=== PATIENT | female | born 1960 | race Caucasian/White ===

== ENCOUNTER 2018-06-19 12:55 | Emergency (ER) | payer OTHER ==
[~2018-06-19] VITALS: Ht 154.9 cm; Wt 48.5 kg
[2018-06-19] MEDS ORDERED: SODIUM CHLORIDE 0.9% 1,000 ML IV ONE (13:50)
[2018-06-19 15:32] LABS: Basophils # (auto) 0.1 uL; Basophils % (auto) 1.9 % (0.0-2.0); Eosinophils # (auto) 0 uL; Eosinophils % (auto) 0.7 % (0.0-7.0); Hemoglobin 9.3 g/dL (12.2-16.2); Monocytes # (auto) 0.3 uL; Neutrophils # (auto) 1.1 uL; White Blood Cell 2.9 10^3/uL (4.4-10.8)
[2018-06-19 15:34] LABS: Hematocrit 26.7 % (36.0-46.0); Lymphocytes # (auto) 1.4 uL; Lymphocytes % (auto) 48.9 % (10.0-50.0); Mean Corpuscular Hemoglobin 43.2 pg (28.0-32.0); Mean Corpuscular Hgb Conc. 34.7 g/dL (32.0-36.0); Mean Corpuscular Volume 124.4 fL (80.0-100.0); Monocytes % (auto) 9.1 % (0.0-12.0); Neutrophils % (auto) 39.4 % (37.0-80.0); Nucleated Red Blood Cells % 0.2 %; Platelet Count (auto) 170 10^3/uL (140-450); Red Blood Cells 2.14 10^6/uL (4.0-5.20); Red Cell Distribution Width 17.3 % (11.8-14.3)
[2018-06-19 15:59] LABS: Albumin 2.7 g/dL (3.4-5.0); BUN/Creatinine Ratio 25.6; Bilirubin, Total 0.3 mg/dL (0.2-1.0); Calcium 7.5 mg/dL (8.5-10.1); Potassium 3.6 mmol/L (3.5-5.1); Total Protein 6.3 g/dL (6.4-8.2)
[2018-06-19] MEDS ORDERED: CYANOCOBALAMIN (B-12) 1000 MCG/1 ML VIAL IM ONE (17:15)
[2018-06-19] MEDS ORDERED: THIAMINE INJ 100 MG, MULTIPLE VITAMIN 10 ML, FOLIC ACID 1 MG, MAGNESIUM SULF SDV 50% 8 ... IV SCH ×5 (18:00)
[2018-06-19 19:29] VITALS: BP 99/63
[2018-06-20] MEDS ORDERED: THIAMINE INJ 100 MG, MULTIPLE VITAMIN 10 ML, FOLIC ACID 1 MG, MAGNESIUM SULF SDV 50% 8 ... IV SCH ×5 (12:00)
== END 2018-06-19 20:29 | disposition home or self-care (01) ==
LOC: ER 12:57
DX: M79.671 Pain in right foot (principal); R60.9 Edema, unspecified; E44.0 Moderate protein-calorie malnutrition; F50.9 Eating disorder, unspecified; D75.89 Other specified diseases of blood and blood-forming organs; R74.8 Abnormal levels of other serum enzymes; F17.210 Nicotine dependence, cigarettes, uncomplicated; J44.9 Chronic obstructive pulmonary disease, unspecified; Z68.20 Body mass index [BMI] 20.0-20.9, adult
CPT/HCPCS: 36415; 71046; 80053; 83735; 83880; 84443; 85025; 93005; 96365; 96372; 99285; J3411; J3420; J3475; J7030

== ENCOUNTER 2023-10-25 03:18 | Inpatient (IN) | payer OTHER ==
[2023-10-25] VITALS (59 sets, daily range): BP systolic 70–128; BP diastolic 35–75; PULSE 66–126; RESP 9–23; TEMP 97.5–99.7; O2SAT 89–100
[~2023-10-25] VITALS: Ht 152.4 cm; Wt 67.9 kg
[2023-10-25 03:43] LABS: Basophils # (auto) 0 10 ^3/uL (0-0.2); Basophils % (auto) 0.3 % (0.0-2.0); Eosinophils # (auto) 0 10 ^3/uL (0-0.8); Eosinophils % (auto) 0.1 % (0.0-7.0); Lymphocytes % (auto) 21.4 % (10.0-50.0); Monocytes # (auto) 0.8 10 ^3/uL (0-1.3)
[2023-10-25 03:44] LABS: Hematocrit 22.3 % (36.0-46.0); Hemoglobin 7.5 g/dL (12.2-16.2); Mean Corpuscular Hemoglobin 38.9 pg (28.0-32.0); Mean Corpuscular Hgb Conc. 33.8 g/dL (32.0-36.0); Mean Corpuscular Volume 115.3 fL (80.0-100.0); Monocytes % (auto) 8.4 % (0.0-12.0); Neutrophils # (auto) 6.6 10 ^3/uL (1.6-8.6); Neutrophils % (auto) 69.8 % (37.0-80.0); Nucleated Red Blood Cells % 0.7 %; Red Blood Cells 1.93 10^6/uL (4.0-5.20); Red Cell Distribution Width 13.4 % (11.8-14.3); White Blood Cell 9.5 10^3/uL (4.4-10.8)
[2023-10-25 04:00] LABS: INR 1.41 (0.9-1.15); Partial Thromboplastin Time 26.6 SEC (24.5-34.5); Prothrombin Time 14.5 sec (9.3-11.8)
[2023-10-25 04:06] LABS: Alanine Aminotransferase 46 U/L (7-40); Alkaline Phosphatase 55 U/L (46-116); Anion Gap 23 (5-15); Aspartate Aminotransferase 99 U/L (13-40); BUN/Creatinine Ratio 46.6 (10.0-20.0); Bilirubin, Total 1.4 mg/dL (0.2-1.0); Blood Urea Nitrogen 34 mg/dL (9-23); Carbon Dioxide 21 mmol/L (20-30); Chloride 90 mmol/L (98-107); Glucose 202 mg/dL (74-106); Potassium 2.8 mmol/L (3.5-5.1); Sodium 134 mmol/L (136-145); Total Protein 5.8 g/dL (5.7-8.2)
[2023-10-25] MEDS ORDERED: PANTOPRAZOLE 40mg/50ML NS AE 50 ML IV ONE (04:30)
[2023-10-25] MEDS ORDERED: ONDANSETRON HCL 4 MG/2 ML VIAL IV ONE (04:30)
[2023-10-25] MEDS ORDERED: fentaNYL CITRATE 100 MCG/2 ML VL IV ONE (04:30)
[2023-10-25] MEDS ORDERED: POTASSIUM CHLORIDE 40 MEQ, LIDOCAINE 1% (LOCAL ANESTH.) 4 ML in SODIUM CHL 0.9% 250 ML IV ONE (04:30)
[2023-10-25] MEDS ORDERED: LACTATED RINGER'S 2,000 ML IV ONE (04:30)
[2023-10-25] MEDS ORDERED: PANTOPRAZOLE 80 MG in SODIUM CHL 0.9% 100 ML IV ONE (04:30)
[2023-10-25 04:36] LABS: Hypochromia Slight; Macrocytosis Slight; Platelet Estimate Adequate
[2023-10-25] MEDS ORDERED: IOHEXOL 300 MG/ML 100ML BOTTLE IJ ONE (04:38)
[2023-10-25] MEDS ORDERED: PANTOPRAZOLE 40 MG/10 ML VIAL INJ IV ONE (05:01)
[2023-10-25] MEDS ORDERED: METOCLOPRAMIDE HCL 5MG/ml INJ 2ml VIAL IV ONE (06:00)
[2023-10-25] MEDS ORDERED: diphenhdrAMINE HCL 50 MG/1 ML VL IV ONE (06:00)
[2023-10-25 06:25] LABS: Urine Epithelial Cast None Seen /hpf (<5)
[2023-10-25] MEDS: POTASSIUM CHL 20MEQ/100ML 100 ML IV SCH ×2 (06:49→08:51)
[2023-10-25 07:02] LABS: Urine Bacteria NONE SEEN /hpf (None Seen); Urine Blood 3+ /uL (Negative); Urine Budding Yeast MODERATE /hpf (None Seen); Urine Clarity HAZY (Clear); Urine Color PINK (Yellow); Urine Mucus FEW (None Seen); Urine Protein, UAD 1+ (Negative); Urine Specific Gravity 1.019 (1.001-1.035); Urine WBC 246 /hpf (0 - 5); Urine WBC Clumps PRESENT /hpf (None Seen); Urine pH 6.5 (5.0-8.0)
[2023-10-25] MEDS ORDERED: LACTATED RINGER'S 1,000 ML IV ONE (07:30)
[2023-10-25] MEDS ORDERED: CIPROFLOXACIN 400MG/200ML 200 ML IV ONE (07:30)
[2023-10-25] MEDS ORDERED: metroNIDAZOLE 500MG/100ML 100 ML IV ONE (07:30)
[2023-10-25 08:46] LABS: Blood Alcohol < 3.0 mg/dL (<10); Lipase 37 U/L (12-53)
[2023-10-25] MEDS ORDERED: DEXTROSE (50%) 50ML SYRG IV PRN (10:15)
[2023-10-25] MEDS ORDERED: DOCUSATE SOD 100 MG CAP PO PRN (10:15)
[2023-10-25] MEDS ORDERED: ONDANSETRON HCL 4 MG/2 ML VIAL IV PRN (10:15)
[2023-10-25] MEDS ORDERED: LORazepam 2MG/ML-1ML VIAL IV PRN (10:15)
[2023-10-25] MEDS ORDERED: OCTREOTIDE ACETATE 100 MCG in SODIUM CHL 0.9% 50 ML IV ONE (10:15)
[2023-10-25] MEDS: PANTOPRAZOLE 40mg/50ML NS AE 50 ML IV SCH ×3 (10:38→19:38)
[2023-10-25 11:07] LABS: Magnesium 1.6 mg/dL (1.6-2.6)
[2023-10-25 11:09] LABS: Phosphorus 4.2 mg/dL (2.4-5.1)
[2023-10-25] MEDS: SODIUM CHLORIDE 0.9% 1,000 ML IV SCH ×2 (11:20→18:20)
[2023-10-25] MEDS: OCTREOTIDE ACETATE 500 MCG in SODIUM CHL 0.9% 99 ML IV SCH ×2 (11:51→20:15)
[2023-10-25] MEDS: InsuLIN REG 1unit/0.01ml Soln (100units/ml) SC SCH ×2 (12:00→18:00)
[2023-10-25] MEDS: ACCU-CHEK COMFORT CURVE STRIP VI SCH ×2 (12:09→18:00)
[2023-10-25] MEDS ORDERED: SODIUM CHLORIDE 0.9% 1,000 ML IV ONE (12:15)
[2023-10-25] MEDS: PIPERACILLIN-TAZOB 3.375GM 100 ML IV SCH ×2 (12:25→18:00)
[2023-10-25 13:13] LABS: Hematocrit 21.1 % (36.0-46.0)
[2023-10-25] MEDS: NOREPINEPHRINE 8 MG/250ML KIT 250 ML IV SCH (16:00)
[2023-10-25] MEDS: MORPHINE SULFATE INJ 2 MG/ml SYRG IV PRN (19:38)
[2023-10-25 20:01] LABS: Hematocrit 20.6 % (36.0-46.0)
[2023-10-25 20:04] LABS: Hemoglobin 6.8 g/dL (12.2-16.2)
[2023-10-25 20:17] LABS: Potassium 3.7 mmol/L (3.5-5.1)
[2023-10-25 20:24] LABS: Magnesium 1.2 mg/dL (1.6-2.6)
[2023-10-26] VITALS (103 sets, daily range): BP systolic 66–127; BP diastolic 16–81; PULSE 57–112; RESP 9–24; TEMP 97.5–98.5; O2SAT 11–100
[2023-10-26] MEDS: ACCU-CHEK COMFORT CURVE STRIP VI SCH ×2 (00:04→05:39)
[2023-10-26] MEDS: PIPERACILLIN-TAZOB 3.375GM 100 ML IV SCH ×4 (00:04→19:47)
[2023-10-26] MEDS: PANTOPRAZOLE 40mg/50ML NS AE 50 ML IV SCH ×5 (00:52→20:27)
[2023-10-26] MEDS: SODIUM CHLORIDE 0.9% 1,000 ML IV SCH ×3 (02:08→18:51)
[2023-10-26 04:10] LABS: Basophils # (auto) 0 10 ^3/uL (0-0.2); Basophils % (auto) 0.4 % (0.0-2.0); Eosinophils # (auto) 0.1 10 ^3/uL (0-0.8); Eosinophils % (auto) 1.4 % (0.0-7.0); Hematocrit 31.8 % (36.0-46.0); Hemoglobin 10.7 g/dL (12.2-16.2); Lymphocytes # (auto) 1.9 10 ^3/uL (0.4-5.4); Lymphocytes % (auto) 22.1 % (10.0-50.0); Mean Corpuscular Hemoglobin 30.9 pg (28.0-32.0); Mean Corpuscular Hgb Conc. 33.8 g/dL (32.0-36.0); Mean Corpuscular Volume 91.5 fL (80.0-100.0); Monocytes # (auto) 0.8 10 ^3/uL (0-1.3); Monocytes % (auto) 8.8 % (0.0-12.0); Neutrophils # (auto) 5.7 10 ^3/uL (1.6-8.6); Neutrophils % (auto) 67.3 % (37.0-80.0); Nucleated Red Blood Cells % 0.3 %; Red Blood Cells 3.48 10^6/uL (4.0-5.20); Red Cell Distribution Width 18.3 % (11.8-14.3); White Blood Cell 8.5 10^3/uL (4.4-10.8)
[2023-10-26 04:26] LABS: Alanine Aminotransferase 28 U/L (7-40); Albumin 2.1 g/dL (3.2-4.8); Alkaline Phosphatase 34 U/L (46-116); Anion Gap 6 (5-15); Aspartate Aminotransferase 73 U/L (13-40); BUN/Creatinine Ratio 46.9 (10.0-20.0); Calcium 6.1 mg/dL (8.7-10.4); Carbon Dioxide 25 mmol/L (20-30); Potassium 3.1 mmol/L (3.5-5.1); Sodium 139 mmol/L (136-145)
[2023-10-26 04:27] LABS: Bilirubin, Total 1.2 mg/dL (0.2-1.0)
[2023-10-26 04:28] LABS: Blood Urea Nitrogen 23 mg/dL (9-23); Chloride 108 mmol/L (98-107); Glucose 136 mg/dL (74-106)
[2023-10-26 05:13] LABS: Platelet Estimate Decreased
[2023-10-26] MEDS ORDERED: CALCIUM GLUC 1,000mg/50ml-NS 50 ML IV ONE (05:30)
[2023-10-26] MEDS: InsuLIN REG 1unit/0.01ml Soln (100units/ml) SC SCH ×2 (05:48)
[2023-10-26] MEDS: POTASSIUM CHL 20MEQ/100ML 100 ML IV SCH ×2 (05:59→07:56)
[2023-10-26] MEDS: OCTREOTIDE ACETATE 500 MCG in SODIUM CHL 0.9% 99 ML IV SCH ×3 (06:15→20:28)
[2023-10-26] MEDS: MAGNESIUM SULFATE 1GM/100ML 100 ML IV SCH ×2 (06:25→07:57)
[2023-10-26] MEDS: FOLIC ACID 1 MG, MAGNESIUM SULF SDV 50% 8 MEQ, MULTIPLE VITAMIN 10 ML, THIAMINE INJ 100... INJ SCH ×10 (07:50→17:26)
[2023-10-26 10:48] LABS: Hematocrit 28.6 % (36.0-46.0); Hemoglobin 9.3 g/dL (12.2-16.2)
[2023-10-26 11:23] LABS: Amphetamine Screen, Urine Neg (NEGATIVE); Barbiturate Scree,Urine Neg (NEGATIVE); Benzodiazephine Screen, Urine Neg (NEGATIVE); Cannabinoid Screen, Urine Neg (NEGATIVE); Cocaine Screen, Urine Neg (NEGATIVE); Opiate Scree,Urine Pos (NEGATIVE); Phencyclidine Screen, Urine Neg (NEGATIVE)
[2023-10-26 12:47] LABS: Chloride 110 mmol/L (98-107); Potassium 3.9 mmol/L (3.5-5.1); Sodium 138 mmol/L (136-145)
[2023-10-26 12:48] LABS: Anion Gap 7 (5-15); Calcium 6.5 mg/dL (8.7-10.4); Carbon Dioxide 21 mmol/L (20-30)
[2023-10-26 12:53] LABS: Blood Urea Nitrogen 13 mg/dL (9-23); Glucose 117 mg/dL (74-106)
[2023-10-26] MEDS: NOREPINEPHRINE 8 MG/250ML KIT 250 ML IV SCH ×2 (14:19→22:36)
[2023-10-26 14:38] LABS: Basophils # (auto) 0 10 ^3/uL (0-0.2); Hemoglobin 8.4 g/dL (12.2-16.2); Monocytes # (auto) 0.4 10 ^3/uL (0-1.3); Neutrophils # (auto) 5.7 10 ^3/uL (1.6-8.6); Nucleated Red Blood Cells % 0.3 %; White Blood Cell 7.5 10^3/uL (4.4-10.8)
[2023-10-26 14:39] LABS: Basophils % (auto) 0.3 % (0.0-2.0); Eosinophils # (auto) 0.1 10 ^3/uL (0-0.8); Eosinophils % (auto) 1.8 % (0.0-7.0); Hematocrit 24.5 % (36.0-46.0); Lymphocytes # (auto) 1.3 10 ^3/uL (0.4-5.4); Mean Corpuscular Hemoglobin 31.9 pg (28.0-32.0); Mean Corpuscular Hgb Conc. 34.4 g/dL (32.0-36.0); Mean Corpuscular Volume 92.9 fL (80.0-100.0); Monocytes % (auto) 5.4 % (0.0-12.0); Neutrophils % (auto) 75.5 % (37.0-80.0); Red Blood Cells 2.64 10^6/uL (4.0-5.20); Red Cell Distribution Width 18.7 % (11.8-14.3)
[2023-10-26] MEDS: MORPHINE SULFATE INJ 2 MG/ml SYRG IV PRN ×2 (15:20→19:48)
[2023-10-26 21:22] LABS: Hematocrit 19.7 % (36.0-46.0)
[2023-10-26 21:46] LABS: Hemoglobin 6.6 g/dL (12.2-16.2)
[2023-10-27] VITALS (103 sets, daily range): BP systolic 77–117; BP diastolic 41–76; PULSE 63–107; RESP 9–23; TEMP 97.8–99; O2SAT 81–100
[2023-10-27] MEDS: PANTOPRAZOLE 40mg/50ML NS AE 50 ML IV SCH ×4 (02:06→18:14)
[2023-10-27] MEDS: SODIUM CHLORIDE 0.9% 1,000 ML IV SCH ×3 (03:19→21:03)
[2023-10-27] MEDS: PIPERACILLIN-TAZOB 3.375GM 100 ML IV SCH ×3 (03:31→20:33)
[2023-10-27 04:14] LABS: Basophils # (auto) 0 10 ^3/uL (0-0.2); Eosinophils # (auto) 0.2 10 ^3/uL (0-0.8); Hematocrit 24.7 % (36.0-46.0); Hemoglobin 8.2 g/dL (12.2-16.2); Mean Corpuscular Hemoglobin 31.1 pg (28.0-32.0); Mean Corpuscular Hgb Conc. 33.2 g/dL (32.0-36.0); Monocytes # (auto) 0.4 10 ^3/uL (0-1.3); Neutrophils # (auto) 4.7 10 ^3/uL (1.6-8.6); Nucleated Red Blood Cells % 0.3 %; Red Blood Cells 2.64 10^6/uL (4.0-5.20)
[2023-10-27 04:18] LABS: Basophils % (auto) 0.5 % (0.0-2.0); Eosinophils % (auto) 3.2 % (0.0-7.0); Lymphocytes # (auto) 1.4 10 ^3/uL (0.4-5.4); Lymphocytes % (auto) 20.3 % (10.0-50.0); Mean Corpuscular Volume 93.5 fL (80.0-100.0); Monocytes % (auto) 6.5 % (0.0-12.0); Neutrophils % (auto) 69.5 % (37.0-80.0); Red Cell Distribution Width 17.5 % (11.8-14.3); White Blood Cell 6.8 10^3/uL (4.4-10.8)
[2023-10-27 04:29] LABS: Alanine Aminotransferase 49 U/L (7-40); Albumin 1.9 g/dL (3.2-4.8); Alkaline Phosphatase 31 U/L (46-116); Anion Gap 7 (5-15); Aspartate Aminotransferase 146 U/L (13-40); BUN/Creatinine Ratio 47.1 (10.0-20.0); Blood Urea Nitrogen 16 mg/dL (9-23); Calcium 6.2 mg/dL (8.7-10.4); Carbon Dioxide 20 mmol/L (20-30); Chloride 112 mmol/L (98-107); Glucose 110 mg/dL (74-106); Phosphorus 1.7 mg/dL (2.4-5.1); Potassium 3.7 mmol/L (3.5-5.1); Sodium 139 mmol/L (136-145); Total Protein 3.7 g/dL (5.7-8.2)
[2023-10-27] MEDS: OCTREOTIDE ACETATE 500 MCG in SODIUM CHL 0.9% 99 ML IV SCH (07:10)
[2023-10-27] MEDS: MORPHINE SULFATE INJ 2 MG/ml SYRG IV PRN ×2 (09:42→17:06)
[2023-10-27] MEDS ORDERED: NALOXONE HCL 0.4 MG/ML VIAL ONE (12:37)
[2023-10-27] MEDS ORDERED: SODIUM CHLORIDE LOCK 10 ML ONE (12:37)
[2023-10-27] MEDS ORDERED: FLUMAZENIL 0.1 MG/ML INJ 10ML MDV IV ONE (12:37)
[2023-10-27] MEDS ORDERED: EPINEPHrine HCL 1 MG/10 ML SYRG ONE (12:37)
[2023-10-27] MEDS ORDERED: MIDAZOLAM HCL 5 MG/ML-1ML VIAL ONE (12:38)
[2023-10-27] MEDS ORDERED: LIDOCAINE VISCOUS 2% 15ML UD ONE (12:38)
[2023-10-27] MEDS ORDERED: fentaNYL CITRATE 100 MCG/2 ML VL ONE (12:39)
[2023-10-27] MEDS ORDERED: LIDOCAINE VISCOUS 2% 15ML UD MT ONE (13:04)
[2023-10-27] MEDS: diphenhdrAMINE HCL 50 MG/1 ML VL ONE ×2 (13:06→13:07)
[2023-10-27] MEDS ORDERED: GOLYTELY 4L KIT PO ONE (14:15)
[2023-10-27] MEDS: NOREPINEPHRINE 8 MG/250ML KIT 250 ML IV SCH (18:16)
[2023-10-27] MEDS: FOLIC ACID 1 MG, MAGNESIUM SULF SDV 50% 8 MEQ, MULTIPLE VITAMIN 10 ML, THIAMINE INJ 100... INJ SCH ×5 (18:45)
[2023-10-27] MEDS ORDERED: MAGNESIUM CITRATE SOLUTION 300 ML BTL PO ONE (18:45)
[2023-10-27 20:56] LABS: Hematocrit 19.2 % (36.0-46.0)
[2023-10-27 21:03] LABS: Hemoglobin 6.5 g/dL (12.2-16.2)
[2023-10-28] VITALS (103 sets, daily range): BP systolic 80–179; BP diastolic 28–156; PULSE 65–127; RESP 11–28; TEMP 97.7–99.2; O2SAT 78–100
[2023-10-28] MEDS: PANTOPRAZOLE 40mg/50ML NS AE 50 ML IV SCH ×3 (01:09→05:48)
[2023-10-28 04:09] LABS: Basophils # (auto) 0 10 ^3/uL (0-0.2); Eosinophils # (auto) 0.1 10 ^3/uL (0-0.8); Hemoglobin 7.9 g/dL (12.2-16.2); Lymphocytes # (auto) 1.1 10 ^3/uL (0.4-5.4); Monocytes # (auto) 0.5 10 ^3/uL (0-1.3); Neutrophils # (auto) 4.8 10 ^3/uL (1.6-8.6); White Blood Cell 6.5 10^3/uL (4.4-10.8)
[2023-10-28] MEDS: PIPERACILLIN-TAZOB 3.375GM 100 ML IV SCH ×3 (04:09→20:06)
[2023-10-28 04:13] LABS: Basophils % (auto) 0.3 % (0.0-2.0); Eosinophils % (auto) 1.8 % (0.0-7.0); Hematocrit 23.8 % (36.0-46.0); Lymphocytes % (auto) 17.3 % (10.0-50.0); Mean Corpuscular Hemoglobin 31.6 pg (28.0-32.0); Mean Corpuscular Hgb Conc. 33.2 g/dL (32.0-36.0); Mean Corpuscular Volume 95.4 fL (80.0-100.0); Monocytes % (auto) 7.3 % (0.0-12.0); Neutrophils % (auto) 73.3 % (37.0-80.0); Nucleated Red Blood Cells % 0.3 %; Red Blood Cells 2.49 10^6/uL (4.0-5.20); Red Cell Distribution Width 16.8 % (11.8-14.3)
[2023-10-28 04:20] LABS: INR 1.16 (0.9-1.15); Partial Thromboplastin Time 31.3 SEC (24.5-34.5); Prothrombin Time 12.1 sec (9.3-11.8)
[2023-10-28 04:24] LABS: Alanine Aminotransferase 41 U/L (7-40); Albumin 1.9 g/dL (3.2-4.8); Alkaline Phosphatase 34 U/L (46-116); Anion Gap 5 (5-15); Aspartate Aminotransferase 101 U/L (13-40); Blood Urea Nitrogen 14 mg/dL (9-23); Carbon Dioxide 20 mmol/L (20-30); Chloride 113 mmol/L (98-107); Glucose 102 mg/dL (74-106); Potassium 3.4 mmol/L (3.5-5.1); Sodium 138 mmol/L (136-145)
[2023-10-28 04:25] LABS: Bilirubin, Total 1.1 mg/dL (0.2-1.0); Total Protein 3.6 g/dL (5.7-8.2)
[2023-10-28 04:55] LABS: Calcium 5.7 mg/dL (8.7-10.4)
[2023-10-28] MEDS: SODIUM CHLORIDE 0.9% 1,000 ML IV SCH ×2 (04:56→13:15)
[2023-10-28] MEDS: CALCIUM GLUC 1,000mg/50ml-NS 50 ML IV SCH ×2 (05:36→06:16)
[2023-10-28] MEDS ORDERED: GOLYTELY 4L KIT PO ONE (06:00)
[2023-10-28] MEDS ORDERED: MAGNESIUM CITRATE SOLUTION 300 ML BTL PO ONE (06:00)
[2023-10-28] MEDS: MORPHINE SULFATE INJ 2 MG/ml SYRG IV PRN ×3 (07:51→20:05)
[2023-10-28] MEDS ORDERED: SODIUM CHLORIDE LOCK 10 ML ONE (08:54)
[2023-10-28] MEDS ORDERED: POTASSIUM EFFERVESENT TAB 25 MEQ PO ONE (09:00)
[2023-10-28] MEDS: PANTOPRAZOLE 40 MG/10 ML VIAL INJ IV SCH ×2 (10:00→21:47)
[2023-10-28] MEDS ORDERED: EPINEPHrine HCL 1 MG/10 ML SYRG ONE (10:36)
[2023-10-28] MEDS ORDERED: SIMETHICONE 40 MG/0.6 ML ORAL DROP ONE (11:50)
[2023-10-28] MEDS: fentaNYL CITRATE 100 MCG/2 ML VL ONE ×2 (12:16→12:27)
[2023-10-28] MEDS: diphenhdrAMINE HCL 50 MG/1 ML VL ONE ×2 (12:16→12:20)
[2023-10-28] MEDS: MIDAZOLAM HCL 5 MG/ML-1ML VIAL ONE ×2 (12:16→12:27)
[2023-10-28] MEDS ORDERED: FUROSEMIDE 20 MG/2 ML VIAL IV ONE ×2 (12:45→22:45)
[2023-10-28] MEDS ORDERED: POTASSIUM CHL 20MEQ/100ML 100 ML IV ONE (13:45)
[2023-10-28 13:48] LABS: Hematocrit 21.1 % (36.0-46.0)
[2023-10-28] MEDS ORDERED: LIDOCAINE 1% (LOCAL ANESTH.) PF 5ml SDV ID ONE (16:15)
[2023-10-28] MEDS: FOLIC ACID 1 MG, MAGNESIUM SULF SDV 50% 8 MEQ, MULTIPLE VITAMIN 10 ML, THIAMINE INJ 100... INJ SCH ×5 (18:00)
[2023-10-28] MEDS: CALCIUM W/VIT D (600MG/400IU) TAB PO SCH (18:34)
[2023-10-28] MEDS: IPRATROPIUM BROM 0.5 MG/2.5ML INH SOL NEB PRN (19:44)
[2023-10-28] MEDS: LEVALBUTEROL HCL 1.25 MG/3 ML NEB NEB PRN (19:45)
[2023-10-28] MEDS: NOREPINEPHRINE 8 MG/250ML KIT 250 ML IV SCH (20:07)
[2023-10-28 20:51] LABS: Hematocrit 26.4 % (36.0-46.0); Hemoglobin 8.5 g/dL (12.2-16.2)
[2023-10-28] MEDS: SODIUM CHLOR 0.9% PF (SALINE LOCK) 10ML VIAL/SYR IV SCH (21:48)
[2023-10-29] VITALS (76 sets, daily range): BP systolic 61–144; BP diastolic 44–97; PULSE 76–121; RESP 11–29; TEMP 98–99; O2SAT 86–100
[2023-10-29] MEDS: MORPHINE SULFATE INJ 2 MG/ml SYRG IV PRN ×4 (00:10→20:03)
[2023-10-29 04:06] LABS: Basophils # (auto) 0 10 ^3/uL (0-0.2); Basophils % (auto) 0.2 % (0.0-2.0); Eosinophils # (auto) 0.1 10 ^3/uL (0-0.8); Eosinophils % (auto) 0.7 % (0.0-7.0); Hematocrit 23.9 % (36.0-46.0); Hemoglobin 8.1 g/dL (12.2-16.2); Lymphocytes # (auto) 1.4 10 ^3/uL (0.4-5.4); Lymphocytes % (auto) 13.4 % (10.0-50.0); Mean Corpuscular Hemoglobin 31.1 pg (28.0-32.0); Mean Corpuscular Hgb Conc. 33.9 g/dL (32.0-36.0); Mean Corpuscular Volume 91.6 fL (80.0-100.0); Monocytes # (auto) 1.3 10 ^3/uL (0-1.3); Monocytes % (auto) 12.1 % (0.0-12.0); Neutrophils # (auto) 7.8 10 ^3/uL (1.6-8.6); Neutrophils % (auto) 73.6 % (37.0-80.0); Nucleated Red Blood Cells % 0.6 %; Red Cell Distribution Width 15.6 % (11.8-14.3); White Blood Cell 10.6 10^3/uL (4.4-10.8)
[2023-10-29 04:13] LABS: Alanine Aminotransferase 38 U/L (7-40); Alkaline Phosphatase 38 U/L (46-116); Anion Gap 6 (5-15); Aspartate Aminotransferase 80 U/L (13-40); Blood Urea Nitrogen 14 mg/dL (9-23); Calcium 6.3 mg/dL (8.7-10.4); Carbon Dioxide 22 mmol/L (20-30); Chloride 109 mmol/L (98-107); Glucose 136 mg/dL (74-106); Potassium 3.3 mmol/L (3.5-5.1); Sodium 137 mmol/L (136-145)
[2023-10-29 04:14] LABS: Bilirubin, Total 0.9 mg/dL (0.2-1.0); Total Protein 3.8 g/dL (5.7-8.2)
[2023-10-29] MEDS: PIPERACILLIN-TAZOB 3.375GM 100 ML IV SCH ×3 (04:41→20:04)
[2023-10-29] MEDS ORDERED: POTASSIUM CHL 20MEQ/100ML 100 ML IV ONE (06:00)
[2023-10-29] MEDS: IPRATROPIUM BROM 0.5 MG/2.5ML INH SOL NEB PRN ×2 (06:08→20:06)
[2023-10-29] MEDS: LEVALBUTEROL HCL 1.25 MG/3 ML NEB NEB PRN ×2 (06:09→20:07)
[2023-10-29] MEDS ORDERED: POTASSIUM EFFERVESENT TAB 25 MEQ PO ONE (08:30)
[2023-10-29 09:33] LABS: Hepatitis B Surface Antigen Negative (Negative)
[2023-10-29 09:53] LABS: Hepatitis A Ab IgM Negative
[2023-10-29 09:54] LABS: Hepatitis B Core IgM Negative
[2023-10-29] MEDS: CALCIUM W/VIT D (600MG/400IU) TAB PO SCH (09:55)
[2023-10-29] MEDS: PANTOPRAZOLE 40 MG/10 ML VIAL INJ IV SCH ×2 (09:55→21:17)
[2023-10-29] MEDS: SODIUM CHLOR 0.9% PF (SALINE LOCK) 10ML VIAL/SYR IV SCH ×2 (09:55→21:17)
[2023-10-29] MEDS: FUROSEMIDE 20 MG/2 ML VIAL IV SCH (09:55)
[2023-10-29 10:12] LABS: Hepatitis C Antibody Negative (Negative)
[2023-10-29] MEDS: FOLIC ACID 1 MG, MAGNESIUM SULF SDV 50% 8 MEQ, MULTIPLE VITAMIN 10 ML, THIAMINE INJ 100... INJ SCH ×5 (19:12)
[2023-10-29 19:21] LABS: Hematocrit 21.4 % (36.0-46.0); Hemoglobin 7.3 g/dL (12.2-16.2)
[2023-10-30] VITALS (102 sets, daily range): BP systolic 72–180; BP diastolic 43–100; PULSE 71–118; RESP 11–30; TEMP 98.2–99.4; O2SAT 82–100
[2023-10-30 03:58] LABS: Basophils # (auto) 0 10 ^3/uL (0-0.2); Eosinophils # (auto) 0.1 10 ^3/uL (0-0.8); Hematocrit 19.1 % (36.0-46.0); Lymphocytes # (auto) 1.2 10 ^3/uL (0.4-5.4); Lymphocytes % (auto) 13.3 % (10.0-50.0)
[2023-10-30 04:00] LABS: Basophils % (auto) 0.3 % (0.0-2.0); Eosinophils % (auto) 1.5 % (0.0-7.0); Mean Corpuscular Hemoglobin 31.2 pg (28.0-32.0); Mean Corpuscular Hgb Conc. 33.1 g/dL (32.0-36.0); Mean Corpuscular Volume 94.1 fL (80.0-100.0); Monocytes % (auto) 10.9 % (0.0-12.0); Neutrophils # (auto) 6.8 10 ^3/uL (1.6-8.6); Nucleated Red Blood Cells % 0.9 %; Red Blood Cells 2.03 10^6/uL (4.0-5.20); Red Cell Distribution Width 16.2 % (11.8-14.3); White Blood Cell 9.2 10^3/uL (4.4-10.8)
[2023-10-30 04:10] LABS: Alanine Aminotransferase 30 U/L (7-40); Albumin 1.8 g/dL (3.2-4.8); Alkaline Phosphatase 42 U/L (46-116); Anion Gap 2 (5-15); Aspartate Aminotransferase 62 U/L (13-40); Blood Urea Nitrogen 12 mg/dL (9-23); Calcium 6.2 mg/dL (8.7-10.4); Carbon Dioxide 25 mmol/L (20-30); Chloride 110 mmol/L (98-107); Glucose 129 mg/dL (74-106); Magnesium 1.8 mg/dL (1.6-2.6); Potassium 3.8 mmol/L (3.5-5.1); Sodium 137 mmol/L (136-145)
[2023-10-30 04:11] LABS: Bilirubin, Total 0.8 mg/dL (0.2-1.0); Total Protein 3.6 g/dL (5.7-8.2)
[2023-10-30 04:17] LABS: Hemoglobin 6.3 g/dL (12.2-16.2)
[2023-10-30] MEDS: PIPERACILLIN-TAZOB 3.375GM 100 ML IV SCH ×3 (04:53→20:09)
[2023-10-30] MEDS: MORPHINE SULFATE INJ 2 MG/ml SYRG IV PRN ×4 (04:53→20:47)
[2023-10-30] MEDS: IPRATROPIUM BROM 0.5 MG/2.5ML INH SOL NEB PRN ×2 (06:15→20:20)
[2023-10-30] MEDS: LEVALBUTEROL HCL 1.25 MG/3 ML NEB NEB PRN ×2 (06:16→20:20)
[2023-10-30] MEDS: FUROSEMIDE 20 MG/2 ML VIAL IV SCH (10:15)
[2023-10-30] MEDS: CALCIUM W/VIT D (600MG/400IU) TAB PO SCH (10:15)
[2023-10-30] MEDS: SODIUM CHLOR 0.9% PF (SALINE LOCK) 10ML VIAL/SYR IV SCH ×2 (10:15→21:52)
[2023-10-30] MEDS: PANTOPRAZOLE 40 MG/10 ML VIAL INJ IV SCH ×2 (10:18→21:51)
[2023-10-30] MEDS: SODIUM CHLORIDE 0.9% 1,000 ML IV SCH (10:18)
[2023-10-30] MEDS: NOREPINEPHRINE 8 MG/250ML KIT 250 ML IV SCH (15:15)
[2023-10-30] MEDS: FOLIC ACID 1 MG, MAGNESIUM SULF SDV 50% 8 MEQ, MULTIPLE VITAMIN 10 ML, THIAMINE INJ 100... INJ SCH ×5 (18:24)
[2023-10-31] VITALS (97 sets, daily range): BP systolic 81–124; BP diastolic 47–88; PULSE 80–123; RESP 12–30; TEMP 98.1–99.7; O2SAT 78–100
[2023-10-31] MEDS: MORPHINE SULFATE INJ 2 MG/ml SYRG IV PRN ×4 (02:46→21:19)
[2023-10-31 03:57] LABS: Hematocrit 23.8 % (36.0-46.0); Hemoglobin 8.1 g/dL (12.2-16.2)
[2023-10-31 04:09] LABS: INR 1.14 (0.9-1.15); Partial Thromboplastin Time 32.4 SEC (24.5-34.5); Prothrombin Time 11.9 sec (9.3-11.8)
[2023-10-31] MEDS: PIPERACILLIN-TAZOB 3.375GM 100 ML IV SCH ×3 (04:23→20:14)
[2023-10-31 04:38] LABS: Alanine Aminotransferase 32 U/L (7-40); Albumin 2.3 g/dL (3.2-4.8); Alkaline Phosphatase 58 U/L (46-116); Anion Gap 2 (5-15); Aspartate Aminotransferase 63 U/L (13-40); BUN/Creatinine Ratio 39.3 (10.0-20.0); Blood Urea Nitrogen 11 mg/dL (9-23); Calcium 6.8 mg/dL (8.7-10.4); Carbon Dioxide 26 mmol/L (20-30); Chloride 108 mmol/L (98-107); Glucose 117 mg/dL (74-106); Potassium 3.3 mmol/L (3.5-5.1); Sodium 136 mmol/L (136-145)
[2023-10-31 04:39] LABS: Bilirubin, Total 1.2 mg/dL (0.2-1.0); Total Protein 4.3 g/dL (5.7-8.2)
[2023-10-31] MEDS ORDERED: FUROSEMIDE 20 MG/2 ML VIAL IV ONE (09:45)
[2023-10-31] MEDS: POTASSIUM CHL 20MEQ/100ML 100 ML IV SCH ×2 (10:56→13:18)
[2023-10-31] MEDS: PANTOPRAZOLE 40 MG/10 ML VIAL INJ IV SCH (10:57)
[2023-10-31] MEDS: FUROSEMIDE 40 MG/4 ML VIAL IV SCH (10:57)
[2023-10-31] MEDS: SODIUM CHLOR 0.9% PF (SALINE LOCK) 10ML VIAL/SYR IV SCH ×2 (10:57→21:20)
[2023-10-31] MEDS: CALCIUM W/VIT D (600MG/400IU) TAB PO SCH (10:58)
[2023-10-31] MEDS: NOREPINEPHRINE 8 MG/250ML KIT 250 ML IV SCH (15:15)
[2023-10-31] MEDS: FOLIC ACID 1 MG, MAGNESIUM SULF SDV 50% 8 MEQ, MULTIPLE VITAMIN 10 ML, THIAMINE INJ 100... INJ SCH ×5 (17:46)
[2023-10-31 22:43] LABS: Hemoglobin 7.1 g/dL (12.2-16.2)
[2023-10-31 22:45] LABS: Hematocrit 21.2 % (36.0-46.0)
[2023-11-01] VITALS (105 sets, daily range): BP systolic 79–114; BP diastolic 48–74; PULSE 74–113; RESP 11–28; TEMP 98.1–98.6; O2SAT 89–100
[2023-11-01 03:48] LABS: Basophils # (auto) 0 10 ^3/uL (0-0.2); Basophils % (auto) 0.4 % (0.0-2.0); Eosinophils # (auto) 0.1 10 ^3/uL (0-0.8); Eosinophils % (auto) 1.4 % (0.0-7.0); Hematocrit 21.3 % (36.0-46.0); Hemoglobin 7.1 g/dL (12.2-16.2); Lymphocytes % (auto) 13.1 % (10.0-50.0); Mean Corpuscular Hemoglobin 31.1 pg (28.0-32.0); Mean Corpuscular Hgb Conc. 33.6 g/dL (32.0-36.0); Mean Corpuscular Volume 92.7 fL (80.0-100.0); Monocytes # (auto) 0.8 10 ^3/uL (0-1.3); Monocytes % (auto) 10.5 % (0.0-12.0); Neutrophils # (auto) 5.9 10 ^3/uL (1.6-8.6); Neutrophils % (auto) 74.6 % (37.0-80.0); Nucleated Red Blood Cells % 0.3 %; Red Cell Distribution Width 16.5 % (11.8-14.3)
[2023-11-01 04:02] LABS: Anion Gap 7 (5-15); Carbon Dioxide 23 mmol/L (20-30); Chloride 108 mmol/L (98-107); Potassium 3.3 mmol/L (3.5-5.1); Sodium 138 mmol/L (136-145)
[2023-11-01 04:03] LABS: Calcium 6.6 mg/dL (8.7-10.4)
[2023-11-01 04:08] LABS: BUN/Creatinine Ratio 36.7 (10.0-20.0); Blood Urea Nitrogen 11 mg/dL (9-23); Glucose 120 mg/dL (74-106)
[2023-11-01] MEDS: PIPERACILLIN-TAZOB 3.375GM 100 ML IV SCH ×3 (04:15→19:56)
[2023-11-01] MEDS: POTASSIUM CHL 20MEQ/100ML 100 ML IV SCH ×2 (05:19→06:50)
[2023-11-01] MEDS: MORPHINE SULFATE INJ 2 MG/ml SYRG IV PRN ×4 (05:50→21:00)
[2023-11-01] MEDS: NOREPINEPHRINE 8 MG/250ML KIT 250 ML IV SCH (06:35)
[2023-11-01] MEDS: FUROSEMIDE 40 MG/4 ML VIAL IV SCH (10:02)
[2023-11-01] MEDS: PANTOPRAZOLE 40 MG TAB PO SCH (10:02)
[2023-11-01] MEDS: SODIUM CHLOR 0.9% PF (SALINE LOCK) 10ML VIAL/SYR IV SCH ×2 (10:03→22:00)
[2023-11-01] MEDS: CALCIUM W/VIT D (600MG/400IU) TAB PO SCH (10:03)
[2023-11-01] MEDS ORDERED: POTASSIUM EFFERVESENT TAB 25 MEQ PO ONE (11:15)
[2023-11-01] MEDS ORDERED: FUROSEMIDE 40 MG/4 ML VIAL IV ONE (11:30)
[2023-11-01] MEDS ORDERED: MAGNESIUM SULFATE 1GM/100ML 100 ML IV ONE (15:45)
[2023-11-01] MEDS: FOLIC ACID 1 MG, MAGNESIUM SULF SDV 50% 8 MEQ, MULTIPLE VITAMIN 10 ML, THIAMINE INJ 100... INJ SCH ×5 (18:17)
[2023-11-01 22:36] LABS: Hematocrit 27.4 % (36.0-46.0)
[2023-11-02] VITALS (89 sets, daily range): BP systolic 79–122; BP diastolic 48–79; PULSE 74–106; RESP 11–31; TEMP 98.2–98.4; O2SAT 90–100
[2023-11-02] MEDS: MORPHINE SULFATE INJ 2 MG/ml SYRG IV PRN ×4 (03:32→23:12)
[2023-11-02] MEDS: PIPERACILLIN-TAZOB 3.375GM 100 ML IV SCH ×3 (04:12→20:37)
[2023-11-02 04:22] LABS: Basophils # (auto) 0 10 ^3/uL (0-0.2); Basophils % (auto) 0.3 % (0.0-2.0); Eosinophils # (auto) 0.1 10 ^3/uL (0-0.8); Eosinophils % (auto) 1.6 % (0.0-7.0); Hematocrit 28.4 % (36.0-46.0); Hemoglobin 9.4 g/dL (12.2-16.2); Lymphocytes # (auto) 0.8 10 ^3/uL (0.4-5.4); Lymphocytes % (auto) 9.3 % (10.0-50.0); Mean Corpuscular Hemoglobin 30.4 pg (28.0-32.0); Mean Corpuscular Hgb Conc. 33.2 g/dL (32.0-36.0); Mean Corpuscular Volume 91.8 fL (80.0-100.0); Monocytes # (auto) 0.8 10 ^3/uL (0-1.3); Monocytes % (auto) 9.2 % (0.0-12.0); Neutrophils % (auto) 79.6 % (37.0-80.0); Nucleated Red Blood Cells % 0.2 %; Red Cell Distribution Width 15.7 % (11.8-14.3); White Blood Cell 8.8 10^3/uL (4.4-10.8)
[2023-11-02 04:33] LABS: Chloride 106 mmol/L (98-107); Potassium 3.3 mmol/L (3.5-5.1); Sodium 136 mmol/L (136-145)
[2023-11-02 04:34] LABS: Anion Gap 6 (5-15); Carbon Dioxide 24 mmol/L (20-30)
[2023-11-02 04:35] LABS: Calcium 6.7 mg/dL (8.7-10.4)
[2023-11-02 04:40] LABS: BUN/Creatinine Ratio 27.6 (10.0-20.0); Blood Urea Nitrogen 8 mg/dL (9-23); Glucose 104 mg/dL (74-106)
[2023-11-02] MEDS ORDERED: POTASSIUM EFFERVESENT TAB 25 MEQ PO ONE (09:00)
[2023-11-02] MEDS: CALCIUM W/VIT D (600MG/400IU) TAB PO SCH (09:34)
[2023-11-02] MEDS: PANTOPRAZOLE 40 MG TAB PO SCH (09:34)
[2023-11-02] MEDS ORDERED: FUROSEMIDE 40 MG/4 ML VIAL IV SCH (10:00)
[2023-11-02] MEDS: SODIUM CHLOR 0.9% PF (SALINE LOCK) 10ML VIAL/SYR IV SCH ×2 (10:04→22:58)
[2023-11-02] MEDS: NOREPINEPHRINE 8 MG/250ML KIT 250 ML IV SCH (15:15)
[2023-11-02] MEDS: FOLIC ACID 1 MG, MAGNESIUM SULF SDV 50% 8 MEQ, MULTIPLE VITAMIN 10 ML, THIAMINE INJ 100... INJ SCH ×5 (17:25)
[2023-11-03] VITALS (41 sets, daily range): BP systolic 83–114; BP diastolic 47–67; PULSE 76–118; RESP 13–29; TEMP 98–99.4; O2SAT 94–100
[2023-11-03 04:57] LABS: Basophils # (auto) 0 10 ^3/uL (0-0.2); Basophils % (auto) 0.3 % (0.0-2.0); Eosinophils # (auto) 0.1 10 ^3/uL (0-0.8); Eosinophils % (auto) 1.6 % (0.0-7.0); Hematocrit 26.5 % (36.0-46.0); Hemoglobin 8.8 g/dL (12.2-16.2); Lymphocytes # (auto) 0.9 10 ^3/uL (0.4-5.4); Lymphocytes % (auto) 12.5 % (10.0-50.0); Mean Corpuscular Hemoglobin 30.7 pg (28.0-32.0); Mean Corpuscular Hgb Conc. 33.1 g/dL (32.0-36.0); Mean Corpuscular Volume 92.9 fL (80.0-100.0); Monocytes # (auto) 0.7 10 ^3/uL (0-1.3); Monocytes % (auto) 9.5 % (0.0-12.0); Neutrophils # (auto) 5.4 10 ^3/uL (1.6-8.6); Neutrophils % (auto) 76.1 % (37.0-80.0); Red Blood Cells 2.86 10^6/uL (4.0-5.20); Red Cell Distribution Width 16.1 % (11.8-14.3); White Blood Cell 7.1 10^3/uL (4.4-10.8)
[2023-11-03 05:14] LABS: Chloride 105 mmol/L (98-107); Potassium 3.5 mmol/L (3.5-5.1); Sodium 135 mmol/L (136-145)
[2023-11-03 05:15] LABS: Anion Gap 5 (5-15); Calcium 6.6 mg/dL (8.7-10.4); Carbon Dioxide 25 mmol/L (20-30)
[2023-11-03 05:20] LABS: BUN/Creatinine Ratio 32.1 (10.0-20.0); Blood Urea Nitrogen 9 mg/dL (9-23); Glucose 89 mg/dL (74-106)
[2023-11-03 05:21] LABS: Magnesium 1.8 mg/dL (1.6-2.6)
[2023-11-03] MEDS: PIPERACILLIN-TAZOB 3.375GM 100 ML IV SCH ×3 (06:05→20:43)
[2023-11-03] MEDS: IPRATROPIUM BROM 0.5 MG/2.5ML INH SOL NEB PRN ×2 (06:10→12:20)
[2023-11-03] MEDS: LEVALBUTEROL HCL 1.25 MG/3 ML NEB NEB PRN ×2 (06:10→12:21)
[2023-11-03] MEDS ORDERED: POTASSIUM EFFERVESENT TAB 25 MEQ PO ONE (08:45)
[2023-11-03] MEDS: FUROSEMIDE 40 MG/4 ML VIAL IV SCH ×3 (10:00→22:00)
[2023-11-03] MEDS ORDERED: PANT40TA2 PO (10:12)
[2023-11-03] MEDS: SODIUM CHLOR 0.9% PF (SALINE LOCK) 10ML VIAL/SYR IV SCH ×2 (10:55→20:46)
[2023-11-03] MEDS: PANTOPRAZOLE 40 MG TAB PO SCH (10:56)
[2023-11-03] MEDS: CALCIUM W/VIT D (600MG/400IU) TAB PO SCH (10:56)
[2023-11-03] MEDS: NOREPINEPHRINE 8 MG/250ML KIT 250 ML IV SCH (15:15)
[2023-11-03] MEDS: FOLIC ACID 1 MG, MAGNESIUM SULF SDV 50% 8 MEQ, MULTIPLE VITAMIN 10 ML, THIAMINE INJ 100... INJ SCH ×5 (18:04)
[2023-11-04] VITALS (11 sets, daily range): BP systolic 93–110; BP diastolic 55–84; PULSE 72–93; RESP 14–20; TEMP 98–98.6; O2SAT 94–100
[2023-11-04] MEDS: PIPERACILLIN-TAZOB 3.375GM 100 ML IV SCH ×3 (04:00→22:35)
[2023-11-04 07:19] LABS: Chloride 104 mmol/L (98-107); Potassium 3.5 mmol/L (3.5-5.1); Sodium 133 mmol/L (136-145)
[2023-11-04 07:20] LABS: Anion Gap 3 (5-15); Carbon Dioxide 26 mmol/L (20-30)
[2023-11-04 07:25] LABS: BUN/Creatinine Ratio 28.6 (10.0-20.0); Blood Urea Nitrogen 8 mg/dL (9-23); Glucose 90 mg/dL (74-106)
[2023-11-04 07:28] LABS: Basophils # (auto) 0 10 ^3/uL (0-0.2); Basophils % (auto) 0.3 % (0.0-2.0); Eosinophils # (auto) 0.1 10 ^3/uL (0-0.8); Eosinophils % (auto) 1.4 % (0.0-7.0); Hematocrit 27.9 % (36.0-46.0); Hemoglobin 9.3 g/dL (12.2-16.2); Lymphocytes # (auto) 1.1 10 ^3/uL (0.4-5.4); Lymphocytes % (auto) 13.1 % (10.0-50.0); Mean Corpuscular Hemoglobin 30.8 pg (28.0-32.0); Mean Corpuscular Hgb Conc. 33.4 g/dL (32.0-36.0); Mean Corpuscular Volume 92.1 fL (80.0-100.0); Monocytes # (auto) 0.9 10 ^3/uL (0-1.3); Monocytes % (auto) 10.2 % (0.0-12.0); Neutrophils # (auto) 6.4 10 ^3/uL (1.6-8.6); Red Blood Cells 3.03 10^6/uL (4.0-5.20); Red Cell Distribution Width 16.6 % (11.8-14.3); White Blood Cell 8.6 10^3/uL (4.4-10.8)
[2023-11-04] MEDS ORDERED: KETOCONAZOLE 2 % TOPICAL CREAM 15GM TOP ONE (08:15)
[2023-11-04] MEDS: FUROSEMIDE 40 MG/4 ML VIAL IV SCH (09:37)
[2023-11-04] MEDS: SODIUM CHLOR 0.9% PF (SALINE LOCK) 10ML VIAL/SYR IV SCH (09:38)
[2023-11-04] MEDS: PANTOPRAZOLE 40 MG TAB PO SCH (09:38)
[2023-11-04] MEDS: CALCIUM W/VIT D (600MG/400IU) TAB PO SCH (09:38)
[2023-11-04] MEDS: IPRATROPIUM BROM 0.5 MG/2.5ML INH SOL NEB PRN (09:45)
[2023-11-04] MEDS: LEVALBUTEROL HCL 1.25 MG/3 ML NEB NEB PRN (09:45)
[2023-11-04 11:45] LABS: COVID19 ANTIGEN SOFIA FIA NEGATIVE (NEGATIVE)
[2023-11-04 15:19] LABS: Basophils # (auto) 0 10 ^3/uL (0-0.2); Basophils % (auto) 0.2 % (0.0-2.0); Eosinophils # (auto) 0.1 10 ^3/uL (0-0.8); Hematocrit 28.8 % (36.0-46.0); Hemoglobin 9.1 g/dL (12.2-16.2); Lymphocytes % (auto) 12.7 % (10.0-50.0); Mean Corpuscular Hgb Conc. 31.7 g/dL (32.0-36.0); Mean Corpuscular Volume 94.5 fL (80.0-100.0); Monocytes # (auto) 0.7 10 ^3/uL (0-1.3); Monocytes % (auto) 8.6 % (0.0-12.0); Neutrophils % (auto) 77.5 % (37.0-80.0); Red Blood Cells 3.05 10^6/uL (4.0-5.20); Red Cell Distribution Width 16.9 % (11.8-14.3); White Blood Cell 7.7 10^3/uL (4.4-10.8)
[2023-11-04] MEDS: NOREPINEPHRINE 8 MG/250ML KIT 250 ML IV SCH (15:54)
[2023-11-04 16:27] LABS: Chloride 103 mmol/L (98-107); Potassium 3.6 mmol/L (3.5-5.1); Sodium 136 mmol/L (136-145)
[2023-11-04 16:28] LABS: Anion Gap 5 (5-15); Carbon Dioxide 28 mmol/L (20-30)
[2023-11-04 16:33] LABS: BUN/Creatinine Ratio 42.4 (10.0-20.0); Blood Urea Nitrogen 14 mg/dL (9-23); Glucose 118 mg/dL (74-106)
[2023-11-04] MEDS: KETOCONAZOLE 2 % TOPICAL CREAM 15GM TOP SCH ×2 (17:59→22:36)
[2023-11-04] MEDS: FOLIC ACID 1 MG, MAGNESIUM SULF SDV 50% 8 MEQ, MULTIPLE VITAMIN 10 ML, THIAMINE INJ 100... INJ SCH ×5 (18:05)
[2023-11-04] MEDS: MORPHINE SULFATE INJ 2 MG/ml SYRG IV PRN (22:29)
[2023-11-05] VITALS (8 sets, daily range): BP systolic 98–124; BP diastolic 56–72; PULSE 78–95; RESP 15–20; TEMP 97.6–98.5; O2SAT 99–100
[2023-11-05] MEDS: FUROSEMIDE 40 MG/4 ML VIAL IV SCH ×3 (01:16→21:54)
[2023-11-05 01:35] LABS: Hematocrit 26.1 % (36.0-46.0); Hemoglobin 8.6 g/dL (12.2-16.2)
[2023-11-05] MEDS: PIPERACILLIN-TAZOB 3.375GM 100 ML IV SCH ×3 (04:52→20:45)
[2023-11-05 07:11] LABS: Alanine Aminotransferase 41 U/L (7-40); Albumin 1.8 g/dL (3.2-4.8); Alkaline Phosphatase 75 U/L (46-116); Anion Gap 4 (5-15); Blood Urea Nitrogen 8 mg/dL (9-23); Calcium 7.1 mg/dL (8.7-10.4); Carbon Dioxide 27 mmol/L (20-30); Chloride 103 mmol/L (98-107); Glucose 110 mg/dL (74-106); Magnesium 1.7 mg/dL (1.6-2.6); Sodium 134 mmol/L (136-145)
[2023-11-05 07:12] LABS: Aspartate Aminotransferase 73 U/L (13-40); Bilirubin, Total 0.6 mg/dL (0.2-1.0); Total Protein 4.8 g/dL (5.7-8.2)
[2023-11-05 07:19] LABS: Basophils # (auto) 0 10 ^3/uL (0-0.2); Basophils % (auto) 0.5 % (0.0-2.0); Eosinophils # (auto) 0.1 10 ^3/uL (0-0.8); Eosinophils % (auto) 1.7 % (0.0-7.0); Hemoglobin 9.2 g/dL (12.2-16.2); Lymphocytes # (auto) 0.8 10 ^3/uL (0.4-5.4); Lymphocytes % (auto) 12.4 % (10.0-50.0); Mean Corpuscular Hemoglobin 30.3 pg (28.0-32.0); Mean Corpuscular Hgb Conc. 31.6 g/dL (32.0-36.0); Monocytes # (auto) 0.7 10 ^3/uL (0-1.3); Neutrophils # (auto) 5.1 10 ^3/uL (1.6-8.6); Neutrophils % (auto) 75.4 % (37.0-80.0); Nucleated Red Blood Cells % 0.1 %; Red Blood Cells 3.02 10^6/uL (4.0-5.20); Red Cell Distribution Width 17.2 % (11.8-14.3); White Blood Cell 6.8 10^3/uL (4.4-10.8)
[2023-11-05] MEDS ORDERED: POTASSIUM EFFERVESENT TAB 25 MEQ PO ONE ×2 (08:30→21:30)
[2023-11-05] MEDS: CALCIUM W/VIT D (600MG/400IU) TAB PO SCH (09:21)
[2023-11-05] MEDS: PANTOPRAZOLE 40 MG TAB PO SCH (09:22)
[2023-11-05] MEDS: KETOCONAZOLE 2 % TOPICAL CREAM 15GM TOP SCH ×2 (09:22→21:54)
[2023-11-05 12:29] LABS: Hematocrit 27.8 % (36.0-46.0)
[2023-11-05] MEDS ORDERED: SODIUM FERR GLUC 62.5MG/5ML 125 MG in SODIUM CHL 0.9% 100 ML IV ONE (13:30)
[2023-11-05] MEDS: NOREPINEPHRINE 8 MG/250ML KIT 250 ML IV SCH (16:07)
[2023-11-05] MEDS: FOLIC ACID 1 MG, MAGNESIUM SULF SDV 50% 8 MEQ, MULTIPLE VITAMIN 10 ML, THIAMINE INJ 100... INJ SCH ×5 (17:45)
[2023-11-05 18:59] LABS: Hematocrit 27.7 % (36.0-46.0); Hemoglobin 8.9 g/dL (12.2-16.2)
[2023-11-05 19:50] LABS: Chloride 101 mmol/L (98-107); Potassium 3.3 mmol/L (3.5-5.1); Sodium 134 mmol/L (136-145)
[2023-11-05 19:51] LABS: Anion Gap 5 (5-15); Carbon Dioxide 28 mmol/L (20-30)
[2023-11-05 19:52] LABS: Calcium 7.1 mg/dL (8.5-10.1)
[2023-11-05 19:56] LABS: BUN/Creatinine Ratio 33.3 (10.0-20.0); Blood Urea Nitrogen 13 mg/dL (9-23); Glucose 135 mg/dL (74-106)
[2023-11-05] MEDS: MORPHINE SULFATE INJ 2 MG/ml SYRG IV PRN (20:46)
[2023-11-05 21:42] LABS: Basophils # (auto) 0 10 ^3/uL (0-0.2); Basophils % (auto) 0.5 % (0.0-2.0); Eosinophils # (auto) 0.2 10 ^3/uL (0-0.8); Eosinophils % (auto) 2.1 % (0.0-7.0); Hematocrit 27.5 % (36.0-46.0); Hemoglobin 8.9 g/dL (12.2-16.2); Lymphocytes # (auto) 1.2 10 ^3/uL (0.4-5.4); Lymphocytes % (auto) 16.2 % (10.0-50.0); Mean Corpuscular Hemoglobin 30.1 pg (28.0-32.0); Mean Corpuscular Hgb Conc. 32.5 g/dL (32.0-36.0); Mean Corpuscular Volume 92.7 fL (80.0-100.0); Monocytes # (auto) 0.8 10 ^3/uL (0-1.3); Monocytes % (auto) 11.3 % (0.0-12.0); Neutrophils % (auto) 69.9 % (37.0-80.0); Nucleated Red Blood Cells % 0.1 %; Red Blood Cells 2.96 10^6/uL (4.0-5.20); Red Cell Distribution Width 16.2 % (11.8-14.3); White Blood Cell 7.1 10^3/uL (4.4-10.8)
[2023-11-06] VITALS (7 sets, daily range): BP systolic 100–101; BP diastolic 61–64; PULSE 81–104; RESP 12–20; TEMP 98–98.5; O2SAT 98–100
[2023-11-06 00:51] LABS: Hemoglobin 8.1 g/dL (12.2-16.2)
[2023-11-06 00:53] LABS: Hematocrit 24.7 % (36.0-46.0)
[2023-11-06] MEDS: PIPERACILLIN-TAZOB 3.375GM 100 ML IV SCH ×3 (03:54→20:48)
[2023-11-06] MEDS: MORPHINE SULFATE INJ 2 MG/ml SYRG IV PRN ×3 (03:55→23:24)
[2023-11-06 06:45] LABS: Basophils # (auto) 0 10 ^3/uL (0-0.2); Eosinophils # (auto) 0.1 10 ^3/uL (0-0.8); Eosinophils % (auto) 2.2 % (0.0-7.0); Lymphocytes # (auto) 0.8 10 ^3/uL (0.4-5.4); Mean Corpuscular Hemoglobin 31.1 pg (28.0-32.0); Monocytes # (auto) 0.7 10 ^3/uL (0-1.3); Monocytes % (auto) 10.5 % (0.0-12.0); Neutrophils # (auto) 4.9 10 ^3/uL (1.6-8.6); Neutrophils % (auto) 74.6 % (37.0-80.0); Nucleated Red Blood Cells % 0.1 %
[2023-11-06 06:47] LABS: Chloride 101 mmol/L (98-107); Potassium 3.6 mmol/L (3.5-5.1); Sodium 134 mmol/L (136-145)
[2023-11-06 06:48] LABS: Calcium 7.3 mg/dL (8.5-10.1)
[2023-11-06 06:52] LABS: Basophils % (auto) 0.4 % (0.0-2.0); Hematocrit 25.3 % (36.0-46.0); Hemoglobin 8.5 g/dL (12.2-16.2); Lymphocytes % (auto) 12.3 % (10.0-50.0); Mean Corpuscular Hgb Conc. 33.4 g/dL (32.0-36.0); Red Blood Cells 2.72 10^6/uL (4.0-5.20); White Blood Cell 6.6 10^3/uL (4.4-10.8)
[2023-11-06 06:53] LABS: BUN/Creatinine Ratio 22.9 (10.0-20.0); Blood Urea Nitrogen 8 mg/dL (9-23); Glucose 93 mg/dL (74-106)
[2023-11-06 07:23] LABS: Anion Gap 3 (5-15); Carbon Dioxide 30 mmol/L (20-30)
[2023-11-06] MEDS: KETOCONAZOLE 2 % TOPICAL CREAM 15GM TOP SCH ×2 (10:00→23:32)
[2023-11-06] MEDS: CALCIUM W/VIT D (600MG/400IU) TAB PO SCH (10:20)
[2023-11-06] MEDS: PANTOPRAZOLE 40 MG TAB PO SCH (10:20)
[2023-11-06] MEDS ORDERED: MIDAZOLAM HCL 2MG/2ML 2ml VIAL (1mg/ml) ONE (12:50)
[2023-11-06] MEDS ORDERED: fentaNYL CITRATE 100 MCG/2 ML VL ONE (12:50)
[2023-11-06] MEDS ORDERED: ONDANSETRON HCL 4 MG/2 ML VIAL ONE (12:50)
[2023-11-06] MEDS ORDERED: PROPOFOL 10 MG/ML 20 ML IV ONE (12:50)
[2023-11-06] MEDS ORDERED: CIPROFLOXACIN 400MG/200ML 200 ML IV ONE (13:14)
[2023-11-06] MEDS ORDERED: HYDROmorphone HCL 2 MG/ML VL/or syr IV PRN (13:30)
[2023-11-06] MEDS ORDERED: METOCLOPRAMIDE HCL 5MG/ml INJ 2ml VIAL IV PRN (13:30)
[2023-11-06] MEDS ORDERED: MORPHINE SULFATE INJ 2 MG/ml SYRG IV PRN (13:30)
[2023-11-06] MEDS ORDERED: phytonadione 10 MG in SODIUM CHL 0.9% 50 ML IV ONE (15:00)
[2023-11-06] MEDS ORDERED: KETAMINE 50mg/ML 1ml syringe IV ONE (15:29)
[2023-11-06] MEDS: HYDROmorphone HCL 2 MG/ML VL/or syr IV PRN ×2 (15:40→15:50)
[2023-11-06] MEDS: diphenhdrAMINE HCL 25 MG CAP PO PRN (17:03)
[2023-11-06] MEDS: FOLIC ACID 1 MG, MAGNESIUM SULF SDV 50% 8 MEQ, MULTIPLE VITAMIN 10 ML, THIAMINE INJ 100... INJ SCH ×5 (18:00)
[2023-11-06] MEDS: FUROSEMIDE 40 MG/4 ML VIAL IV SCH (18:00)
[2023-11-07] VITALS (7 sets, daily range): BP systolic 91–95; BP diastolic 51–62; PULSE 88–104; RESP 16–19; TEMP 97.4–98.9; O2SAT 96–99
[2023-11-07] MEDS: PIPERACILLIN-TAZOB 3.375GM 100 ML IV SCH (04:31)
[2023-11-07 06:27] LABS: Basophils # (auto) 0 10 ^3/uL (0-0.2); Eosinophils # (auto) 0.1 10 ^3/uL (0-0.8); Hemoglobin 8.1 g/dL (12.2-16.2); Monocytes # (auto) 0.9 10 ^3/uL (0-1.3); Nucleated Red Blood Cells % 0.1 %
[2023-11-07 06:30] LABS: Basophils % (auto) 0.6 % (0.0-2.0); Eosinophils % (auto) 1.1 % (0.0-7.0); Hematocrit 24.6 % (36.0-46.0); Lymphocytes % (auto) 10.7 % (10.0-50.0); Mean Corpuscular Hemoglobin 30.9 pg (28.0-32.0); Mean Corpuscular Volume 93.6 fL (80.0-100.0); Monocytes % (auto) 9.9 % (0.0-12.0); Neutrophils % (auto) 77.7 % (37.0-80.0); Red Blood Cells 2.63 10^6/uL (4.0-5.20)
[2023-11-07 06:33] LABS: Chloride 99 mmol/L (98-107); Potassium 3.6 mmol/L (3.5-5.1); Sodium 132 mmol/L (136-145)
[2023-11-07 06:34] LABS: Anion Gap 3 (5-15); Carbon Dioxide 30 mmol/L (20-30)
[2023-11-07 06:35] LABS: Calcium 7.2 mg/dL (8.7-10.4)
[2023-11-07 06:39] LABS: BUN/Creatinine Ratio 21.3 (10.0-20.0); Blood Urea Nitrogen 10 mg/dL (9-23); Glucose 108 mg/dL (74-106)
[2023-11-07] MEDS: FUROSEMIDE 40 MG/4 ML VIAL IV SCH ×2 (06:52→16:59)
[2023-11-07] MEDS: ceFAZolin 2 GM/D5W100ml 100 ML IV SCH ×3 (07:30→22:55)
[2023-11-07] MEDS: PANTOPRAZOLE 40 MG TAB PO SCH (09:20)
[2023-11-07] MEDS: CALCIUM W/VIT D (600MG/400IU) TAB PO SCH (09:21)
[2023-11-07] MEDS: KETOCONAZOLE 2 % TOPICAL CREAM 15GM TOP SCH ×2 (09:23→22:55)
[2023-11-07] MEDS: FLUCONAZOLE 200MG/100ML 100 ML IV SCH ×2 (09:38→09:59)
[2023-11-07] MEDS: MORPHINE SULFATE INJ 2 MG/ml SYRG IV PRN (15:14)
[2023-11-07] MEDS: diphenhdrAMINE HCL 25 MG CAP PO PRN (22:42)
[2023-11-08] MEDS: MORPHINE SULFATE INJ 2 MG/ml SYRG IV PRN ×2 (02:04→10:50)
[2023-11-08 05:00] VITALS: BP 111/58; PULSE 85; RESP 18; TEMP 97.7; O2SAT 97
[2023-11-08] MEDS: ceFAZolin 2 GM/D5W100ml 100 ML IV SCH ×3 (05:58→23:24)
[2023-11-08] MEDS: FUROSEMIDE 40 MG/4 ML VIAL IV SCH (06:00)
[2023-11-08 07:19] LABS: Chloride 99 mmol/L (98-107); Potassium 2.9 mmol/L (3.5-5.1); Sodium 132 mmol/L (136-145)
[2023-11-08 07:20] LABS: Anion Gap 4 (5-15); Carbon Dioxide 29 mmol/L (20-30)
[2023-11-08 07:21] LABS: Basophils # (auto) 0 10 ^3/uL (0-0.2); Eosinophils # (auto) 0.1 10 ^3/uL (0-0.8); Hemoglobin 7.2 g/dL (12.2-16.2); Lymphocytes # (auto) 0.9 10 ^3/uL (0.4-5.4); Nucleated Red Blood Cells % 0.1 %
[2023-11-08 07:23] LABS: Basophils % (auto) 0.4 % (0.0-2.0); Eosinophils % (auto) 1.3 % (0.0-7.0); Hematocrit 21.8 % (36.0-46.0); Lymphocytes % (auto) 16.6 % (10.0-50.0); Mean Corpuscular Hemoglobin 31.2 pg (28.0-32.0); Mean Corpuscular Volume 94.4 fL (80.0-100.0); Monocytes # (auto) 0.5 10 ^3/uL (0-1.3); Monocytes % (auto) 8.7 % (0.0-12.0); Red Blood Cells 2.31 10^6/uL (4.0-5.20); Red Cell Distribution Width 17.4 % (11.8-14.3); White Blood Cell 5.4 10^3/uL (4.4-10.8)
[2023-11-08 07:25] LABS: BUN/Creatinine Ratio 22.2 (10.0-20.0); Blood Urea Nitrogen 8 mg/dL (9-23); Glucose 98 mg/dL (74-106)
[2023-11-08 07:26] LABS: Magnesium 1.3 mg/dL (1.6-2.6)
[2023-11-08 08:00] VITALS: BP 130/55; PULSE 84; PULSE 94; PULSE 96; RESP 18; TEMP 97.6; O2SAT 98
[2023-11-08] MEDS: KETOCONAZOLE 2 % TOPICAL CREAM 15GM TOP SCH ×2 (10:00→22:00)
[2023-11-08] MEDS: CALCIUM W/VIT D (600MG/400IU) TAB PO SCH (10:49)
[2023-11-08] MEDS: MAGNESIUM SULFATE 1GM/100ML 100 ML IV SCH ×2 (10:49→12:05)
[2023-11-08] MEDS: PANTOPRAZOLE 40 MG TAB PO SCH (10:49)
[2023-11-08] MEDS: FLUCONAZOLE 200MG/100ML 100 ML IV SCH (10:49)
[2023-11-08] MEDS: POTASSIUM CHL 20MEQ/100ML 100 ML IV SCH ×4 (10:49→17:30)
[2023-11-08 12:00] VITALS: BP 120/51; PULSE 85; RESP 20; TEMP 98.1; O2SAT 97
[2023-11-08] MEDS: SODIUM FERR GLUC 62.5MG/5ML 125 MG in SODIUM CHL 0.9% 100 ML IV SCH (12:57)
[2023-11-08 14:04] LABS: Hematocrit 25.3 % (36.0-46.0)
[2023-11-08 14:06] LABS: Hemoglobin 8.1 g/dL (12.2-16.2)
[2023-11-08 16:00] VITALS: BP 97/47; PULSE 89; RESP 20; TEMP 98.3; O2SAT 99
[2023-11-08] MEDS ORDERED: SODIUM CHLORIDE 0.9% 250 ML IV ONE (17:00)
[2023-11-08] MEDS ORDERED: SODIUM CHLORIDE 0.9% 1,000 ML IV SCH (17:00)
[2023-11-08] MEDS: HYDROcodone-ACET 5/325MG TAB PO PRN (17:55)
[2023-11-08 20:00] VITALS: PULSE 85; PULSE 86; RESP 16
[2023-11-08 22:00] VITALS: BP 106/58; PULSE 86; RESP 16; TEMP 98.7; O2SAT 96
[2023-11-09] VITALS (7 sets, daily range): BP systolic 94–129; BP diastolic 50–80; PULSE 74–94; RESP 15–18; TEMP 97.9–98.5; O2SAT 94–100
[2023-11-09] MEDS: HYDROcodone-ACET 5/325MG TAB PO PRN ×4 (04:44→22:22)
[2023-11-09] MEDS: ceFAZolin 2 GM/D5W100ml 100 ML IV SCH ×2 (05:32→13:30)
[2023-11-09 06:22] LABS: Calcium 7.2 mg/dL (8.7-10.4); Chloride 102 mmol/L (98-107); Potassium 4.4 mmol/L (3.5-5.1); Sodium 133 mmol/L (136-145)
[2023-11-09 06:23] LABS: Anion Gap 3 (5-15); Carbon Dioxide 28 mmol/L (20-30)
[2023-11-09 06:28] LABS: BUN/Creatinine Ratio 31.3 (10.0-20.0); Blood Urea Nitrogen 10 mg/dL (9-23); Glucose 85 mg/dL (74-106); Magnesium 1.7 mg/dL (1.6-2.6)
[2023-11-09 06:32] LABS: Basophils # (auto) 0 10 ^3/uL (0-0.2); Eosinophils # (auto) 0.1 10 ^3/uL (0-0.8); Hemoglobin 7.9 g/dL (12.2-16.2); Lymphocytes # (auto) 0.5 10 ^3/uL (0.4-5.4); Monocytes # (auto) 0.5 10 ^3/uL (0-1.3); Neutrophils # (auto) 3.4 10 ^3/uL (1.6-8.6); Neutrophils % (auto) 75.9 % (37.0-80.0); White Blood Cell 4.5 10^3/uL (4.4-10.8)
[2023-11-09 06:36] LABS: Basophils % (auto) 0.5 % (0.0-2.0); Eosinophils % (auto) 1.3 % (0.0-7.0); Lymphocytes % (auto) 12.1 % (10.0-50.0); Mean Corpuscular Hemoglobin 30.9 pg (28.0-32.0); Mean Corpuscular Hgb Conc. 33.1 g/dL (32.0-36.0); Mean Corpuscular Volume 93.4 fL (80.0-100.0); Monocytes % (auto) 10.2 % (0.0-12.0); Nucleated Red Blood Cells % 0.1 %; Red Blood Cells 2.57 10^6/uL (4.0-5.20); Red Cell Distribution Width 17.3 % (11.8-14.3)
[2023-11-09] MEDS: FLUCONAZOLE 200MG/100ML 100 ML IV SCH (09:00)
[2023-11-09] MEDS: CALCIUM W/VIT D (600MG/400IU) TAB PO SCH (09:00)
[2023-11-09] MEDS: PANTOPRAZOLE 40 MG TAB PO SCH (09:00)
[2023-11-09] MEDS: KETOCONAZOLE 2 % TOPICAL CREAM 15GM TOP SCH (09:01)
[2023-11-09] MEDS: MORPHINE SULFATE INJ 2 MG/ml SYRG IV PRN (11:26)
[2023-11-09] MEDS: SODIUM FERR GLUC 62.5MG/5ML 125 MG in SODIUM CHL 0.9% 100 ML IV SCH (12:40)
[2023-11-09] MEDS ORDERED: SPIRONOLACTONE 25 MG TAB PO ONE (12:45)
[2023-11-09] MEDS ORDERED: NYSTATIN TOPICAL POWDER 15GM TOP ONE (13:30)
[2023-11-09 14:54] LABS: Body Fluid pH 8
[2023-11-09 14:55] LABS: Body Fluid pH 8
[2023-11-09 15:11] LABS: Body Fluid Red Blood Cells 3 CUMM (0-2000); Body Fluid White Blood Cells 18 CUMM (0-200)
[2023-11-09 15:12] LABS: Body Fluid Polymorphonuclear 5 % (0-25)
[2023-11-09 15:13] LABS: Body Fluid Polymorphonuclear 4 % (0-25)
[2023-11-09 15:16] LABS: Body Fluid Red Blood Cells 728 CUMM (0-2000); Body Fluid White Blood Cells 20 CUMM (0-200)
[2023-11-09] MEDS: NYSTATIN TOPICAL POWDER 15GM TOP SCH (22:05)
[2023-11-10] VITALS (7 sets, daily range): BP systolic 90–117; BP diastolic 52–59; PULSE 74–98; RESP 14–18; TEMP 98.3–98.5; O2SAT 95–98
[2023-11-10 06:04] LABS: Alanine Aminotransferase 44 U/L (7-40); Albumin 1.9 g/dL (3.2-4.8); Alkaline Phosphatase 103 U/L (46-116); Anion Gap 4 (5-15); Aspartate Aminotransferase 150 U/L (13-40); BUN/Creatinine Ratio 32.3 (10.0-20.0); Blood Urea Nitrogen 10 mg/dL (9-23); Calcium 7.1 mg/dL (8.7-10.4); Carbon Dioxide 28 mmol/L (20-30); Chloride 101 mmol/L (98-107); Glucose 87 mg/dL (74-106); Magnesium 1.6 mg/dL (1.6-2.6); Potassium 4.3 mmol/L (3.5-5.1); Sodium 133 mmol/L (136-145)
[2023-11-10 06:05] LABS: Bilirubin, Total 0.5 mg/dL (0.2-1.0); Total Protein 5.1 g/dL (5.7-8.2)
[2023-11-10] MEDS: HYDROcodone-ACET 5/325MG TAB PO PRN ×3 (06:38→21:03)
[2023-11-10 07:24] LABS: Hematocrit 26.5 % (36.0-46.0); Hemoglobin 8.4 g/dL (12.2-16.2); Mean Corpuscular Hemoglobin 30.1 pg (28.0-32.0); Mean Corpuscular Hgb Conc. 31.7 g/dL (32.0-36.0); Mean Corpuscular Volume 95.1 fL (80.0-100.0); Red Blood Cells 2.79 10^6/uL (4.0-5.20); Red Cell Distribution Width 19.4 % (11.8-14.3); White Blood Cell 4.8 10^3/uL (4.4-10.8)
[2023-11-10 07:28] LABS: Basophils % (manual) 0 (0.0-2.0); Metamyelocytes % 0; Myelocytes % 0; Promyelocytes % 0; Reactive Lymphocytes 0
[2023-11-10 08:24] LABS: Anisocytosis Slight; Band Neutrophils % (manual) 5; Blast Cells 1; Eosinophils % (manual) 4 (0-7); Lymphocytes % (manual) 14 (10.0-50.0); Monocytes % (manual) 6 (0-12); Platelet Estimate Decreased
[2023-11-10] MEDS: NYSTATIN TOPICAL POWDER 15GM TOP SCH ×2 (09:51→21:03)
[2023-11-10] MEDS: CALCIUM W/VIT D (600MG/400IU) TAB PO SCH (09:51)
[2023-11-10] MEDS: FLUCONAZOLE 200MG/100ML 100 ML IV SCH (09:51)
[2023-11-10] MEDS: SPIRONOLACTONE 25 MG TAB PO SCH (09:51)
[2023-11-10] MEDS: PANTOPRAZOLE 40 MG TAB PO SCH (09:51)
[2023-11-10] MEDS: SODIUM FERR GLUC 62.5MG/5ML 125 MG in SODIUM CHL 0.9% 100 ML IV SCH (12:30)
[2023-11-10 13:06] LABS: Protein, Body Fluid 0.9 g/dL (.)
[2023-11-10 13:06] LABS: Protein, Body Fluid 0.3 g/dL (.)
[2023-11-11] VITALS (8 sets, daily range): BP systolic 96–113; BP diastolic 54–71; PULSE 71–98; RESP 15–20; TEMP 97.9–98.5; O2SAT 94–100
[2023-11-11 06:43] LABS: Alanine Aminotransferase 47 U/L (7-40); Albumin 1.7 g/dL (3.2-4.8); Alkaline Phosphatase 107 U/L (46-116); Anion Gap 1 (5-15); Aspartate Aminotransferase 144 U/L (13-40); BUN/Creatinine Ratio 26.5 (10.0-20.0); Bilirubin, Total 0.6 mg/dL (0.2-1.0); Blood Urea Nitrogen 9 mg/dL (9-23); Calcium 7.6 mg/dL (8.5-10.1); Carbon Dioxide 29 mmol/L (20-30); Chloride 101 mmol/L (98-107); Glucose 85 mg/dL (74-106); Potassium 4.6 mmol/L (3.5-5.1); Sodium 131 mmol/L (136-145); Total Protein 4.9 g/dL (5.7-8.2)
[2023-11-11 06:52] LABS: Basophils # (auto) 0 10 ^3/uL (0-0.2); Basophils % (auto) 0.5 % (0.0-2.0); Eosinophils # (auto) 0.1 10 ^3/uL (0-0.8); Hematocrit 24.7 % (36.0-46.0); Lymphocytes # (auto) 0.7 10 ^3/uL (0.4-5.4); Monocytes # (auto) 0.5 10 ^3/uL (0-1.3); Neutrophils # (auto) 2.9 10 ^3/uL (1.6-8.6); Red Blood Cells 2.58 10^6/uL (4.0-5.20)
[2023-11-11 06:54] LABS: Eosinophils % (auto) 2.1 % (0.0-7.0); Hemoglobin 8.1 g/dL (12.2-16.2); Lymphocytes % (auto) 17.3 % (10.0-50.0); Mean Corpuscular Hemoglobin 31.4 pg (28.0-32.0); Mean Corpuscular Hgb Conc. 32.9 g/dL (32.0-36.0); Mean Corpuscular Volume 95.6 fL (80.0-100.0); Monocytes % (auto) 12.5 % (0.0-12.0); Neutrophils % (auto) 67.6 % (37.0-80.0); Nucleated Red Blood Cells % 0.2 %; Red Cell Distribution Width 19.1 % (11.8-14.3); White Blood Cell 4.3 10^3/uL (4.4-10.8)
[2023-11-11] MEDS: PANTOPRAZOLE 40 MG TAB PO SCH (09:37)
[2023-11-11] MEDS: CALCIUM W/VIT D (600MG/400IU) TAB PO SCH (09:37)
[2023-11-11] MEDS: FLUCONAZOLE 200MG/100ML 100 ML IV SCH (09:37)
[2023-11-11] MEDS: SPIRONOLACTONE 25 MG TAB PO SCH (09:37)
[2023-11-11] MEDS: HYDROcodone-ACET 5/325MG TAB PO PRN (09:39)
[2023-11-11] MEDS: NYSTATIN TOPICAL POWDER 15GM TOP SCH ×2 (10:17→22:00)
[2023-11-11] MEDS ORDERED: FUROSEMIDE 40 MG TAB PO ONE (11:45)
[2023-11-11 12:00] LABS: Magnesium 1.5 mg/dL (1.6-2.6)
[2023-11-11] MEDS ORDERED: IRON SUCROSE COMPLEX 200 MG in SODIUM CHL 0.9% 100 ML IV SCH (12:00)
[2023-11-11] MEDS ORDERED: IRON SUCROSE COMPLEX 100 ML IV SCH (12:00)
[2023-11-11] MEDS: MIDODRINE HCL 10 MG TAB PO SCH ×2 (12:42→18:01)
[2023-11-11] MEDS ORDERED: ACETAMINOPHEN 325 MG TAB PO PRN (17:15)
[2023-11-12 05:00] VITALS: BP 95/53; PULSE 78; RESP 22; TEMP 97.5; O2SAT 99
[2023-11-12 05:31] LABS: Basophils # (auto) 0 10 ^3/uL (0-0.2); Basophils % (auto) 0.6 % (0.0-2.0); Eosinophils # (auto) 0.1 10 ^3/uL (0-0.8); Eosinophils % (auto) 1.3 % (0.0-7.0); Hematocrit 25.8 % (36.0-46.0); Hemoglobin 8.3 g/dL (12.2-16.2); Lymphocytes % (auto) 19.6 % (10.0-50.0); Mean Corpuscular Hemoglobin 30.8 pg (28.0-32.0); Mean Corpuscular Hgb Conc. 32.4 g/dL (32.0-36.0); Mean Corpuscular Volume 95.3 fL (80.0-100.0); Monocytes # (auto) 0.6 10 ^3/uL (0-1.3); Monocytes % (auto) 11.8 % (0.0-12.0); Neutrophils # (auto) 3.3 10 ^3/uL (1.6-8.6); Neutrophils % (auto) 66.7 % (37.0-80.0); Nucleated Red Blood Cells % 0.1 %; Red Cell Distribution Width 18.9 % (11.8-14.3)
[2023-11-12] MEDS: MIDODRINE HCL 10 MG TAB PO SCH ×3 (05:32→18:03)
[2023-11-12 05:36] LABS: Alanine Aminotransferase 45 U/L (7-40); Albumin 1.8 g/dL (3.2-4.8); Alkaline Phosphatase 112 U/L (46-116); Anion Gap 4 (5-15); Aspartate Aminotransferase 122 U/L (13-40); BUN/Creatinine Ratio 32.4 (10.0-20.0); Bilirubin, Total 0.5 mg/dL (0.2-1.0); Blood Urea Nitrogen 12 mg/dL (9-23); Calcium 7.4 mg/dL (8.7-10.4); Carbon Dioxide 28 mmol/L (20-30); Chloride 101 mmol/L (98-107); Glucose 104 mg/dL (74-106); Magnesium 1.3 mg/dL (1.6-2.6); Potassium 4.4 mmol/L (3.5-5.1); Sodium 133 mmol/L (136-145)
[2023-11-12 05:37] LABS: Total Protein 4.9 g/dL (5.7-8.2)
[2023-11-12 09:00] VITALS: BP 89/54; PULSE 67; RESP 22; TEMP 98.1; O2SAT 96
[2023-11-12] MEDS: FLUCONAZOLE 200MG/100ML 100 ML IV SCH (09:31)
[2023-11-12] MEDS: CALCIUM W/VIT D (600MG/400IU) TAB PO SCH (09:32)
[2023-11-12] MEDS: PANTOPRAZOLE 40 MG TAB PO SCH (09:39)
[2023-11-12] MEDS: FUROSEMIDE 40 MG TAB PO SCH (10:00)
[2023-11-12] MEDS: SPIRONOLACTONE 25 MG TAB PO SCH (10:15)
[2023-11-12] MEDS: NYSTATIN TOPICAL POWDER 15GM TOP SCH ×2 (10:21→22:52)
[2023-11-12] MEDS: MAGNESIUM SULFATE 1GM/100ML 100 ML IV SCH ×4 (12:09→15:01)
[2023-11-12] MEDS: IRON SUCROSE COMPLEX 100 ML IV SCH (12:09)
[2023-11-12 13:00] VITALS: BP 89/56; PULSE 75; RESP 18; TEMP 98.4; O2SAT 100
[2023-11-12 17:00] VITALS: BP 91/5; PULSE 81; RESP 20; TEMP 98.1; O2SAT 99
[2023-11-12 20:00] VITALS: PULSE 75
[2023-11-12 22:00] VITALS: BP 108/56; PULSE 75; RESP 16; TEMP 98.2; O2SAT 99
[2023-11-12] MEDS: MORPHINE SULFATE INJ 2 MG/ml SYRG IV PRN (23:07)
[2023-11-13] VITALS (7 sets, daily range): BP systolic 96–115; BP diastolic 3–76; PULSE 72–80; RESP 12–19; TEMP 97.4–98.3; O2SAT 93–100
[2023-11-13] MEDS: MIDODRINE HCL 10 MG TAB PO SCH ×3 (05:53→18:03)
[2023-11-13 05:55] LABS: Basophils # (auto) 0 10 ^3/uL (0-0.2); Basophils % (auto) 0.4 % (0.0-2.0); Eosinophils # (auto) 0.1 10 ^3/uL (0-0.8); Hematocrit 27.6 % (36.0-46.0); Hemoglobin 8.9 g/dL (12.2-16.2); Lymphocytes # (auto) 1.3 10 ^3/uL (0.4-5.4); Lymphocytes % (auto) 22.5 % (10.0-50.0); Mean Corpuscular Hemoglobin 31.2 pg (28.0-32.0); Mean Corpuscular Hgb Conc. 32.3 g/dL (32.0-36.0); Mean Corpuscular Volume 96.4 fL (80.0-100.0); Monocytes # (auto) 0.6 10 ^3/uL (0-1.3); Monocytes % (auto) 10.3 % (0.0-12.0); Neutrophils # (auto) 3.9 10 ^3/uL (1.6-8.6); Neutrophils % (auto) 65.8 % (37.0-80.0); Nucleated Red Blood Cells % 0.5 %; Red Blood Cells 2.86 10^6/uL (4.0-5.20); White Blood Cell 5.9 10^3/uL (4.4-10.8)
[2023-11-13] MEDS: MORPHINE SULFATE INJ 2 MG/ml SYRG IV PRN ×3 (05:59→22:20)
[2023-11-13 06:01] LABS: Red Cell Distribution Width 20.5 % (11.8-14.3)
[2023-11-13 06:11] LABS: Alanine Aminotransferase 48 U/L (7-40); Albumin 1.9 g/dL (3.2-4.8); Alkaline Phosphatase 122 U/L (46-116); Anion Gap 3 (5-15); Aspartate Aminotransferase 128 U/L (13-40); BUN/Creatinine Ratio 26.8 (10.0-20.0); Blood Urea Nitrogen 11 mg/dL (9-23); Carbon Dioxide 31 mmol/L (20-30); Chloride 99 mmol/L (98-107); Glucose 93 mg/dL (74-106); Potassium 4.9 mmol/L (3.5-5.1); Sodium 133 mmol/L (136-145)
[2023-11-13 06:12] LABS: Bilirubin, Total 0.7 mg/dL (0.2-1.0); Total Protein 5.4 g/dL (5.7-8.2)
[2023-11-13] MEDS: CALCIUM W/VIT D (600MG/400IU) TAB PO SCH (11:00)
[2023-11-13] MEDS: PANTOPRAZOLE 40 MG TAB PO SCH (11:00)
[2023-11-13] MEDS: FLUCONAZOLE 200MG/100ML 100 ML IV SCH (11:00)
[2023-11-13] MEDS: SPIRONOLACTONE 25 MG TAB PO SCH (11:00)
[2023-11-13] MEDS: FUROSEMIDE 40 MG TAB PO SCH (11:01)
[2023-11-13] MEDS: NYSTATIN TOPICAL POWDER 15GM TOP SCH ×2 (11:01→22:20)
[2023-11-13] MEDS: IRON SUCROSE COMPLEX 100 ML IV SCH (12:27)
[2023-11-14] MEDS: MORPHINE SULFATE INJ 2 MG/ml SYRG IV PRN ×2 (02:54→21:50)
[2023-11-14 05:00] VITALS: BP 104/53; PULSE 71; RESP 19; TEMP 98; O2SAT 100
[2023-11-14] MEDS: MIDODRINE HCL 10 MG TAB PO SCH ×3 (05:58→17:57)
[2023-11-14 06:35] LABS: Eosinophils # (auto) 0.1 10 ^3/uL (0-0.8); Lymphocytes # (auto) 1.2 10 ^3/uL (0.4-5.4); Mean Corpuscular Hgb Conc. 32.2 g/dL (32.0-36.0); Monocytes # (auto) 0.6 10 ^3/uL (0-1.3); Neutrophils # (auto) 3.3 10 ^3/uL (1.6-8.6); White Blood Cell 5.3 10^3/uL (4.4-10.8)
[2023-11-14 06:39] LABS: Basophils # (auto) 0 10 ^3/uL (0-0.2); Basophils % (auto) 0.6 % (0.0-2.0); Hematocrit 26.3 % (36.0-46.0); Hemoglobin 8.5 g/dL (12.2-16.2); Mean Corpuscular Hemoglobin 31.3 pg (28.0-32.0); Mean Corpuscular Volume 97.1 fL (80.0-100.0); Neutrophils % (auto) 62.4 % (37.0-80.0); Red Blood Cells 2.71 10^6/uL (4.0-5.20)
[2023-11-14 06:46] LABS: Red Cell Distribution Width 21.5 % (11.8-14.3)
[2023-11-14 07:05] LABS: Chloride 99 mmol/L (98-107); Potassium 4.4 mmol/L (3.5-5.1); Sodium 132 mmol/L (136-145)
[2023-11-14 07:06] LABS: Calcium 7.9 mg/dL (8.5-10.1)
[2023-11-14 07:11] LABS: BUN/Creatinine Ratio 18.9 (10.0-20.0); Blood Urea Nitrogen 7 mg/dL (9-23); Glucose 82 mg/dL (74-106)
[2023-11-14 07:32] LABS: Anion Gap 5 (5-15); Carbon Dioxide 28 mmol/L (20-30)
[2023-11-14 09:00] VITALS: BP 96/57; PULSE 80; RESP 17; TEMP 98.7; O2SAT 98
[2023-11-14] MEDS: FLUCONAZOLE 200MG/100ML 100 ML IV SCH (09:17)
[2023-11-14] MEDS: PANTOPRAZOLE 40 MG TAB PO SCH (09:17)
[2023-11-14] MEDS: CALCIUM W/VIT D (600MG/400IU) TAB PO SCH (09:17)
[2023-11-14] MEDS: FUROSEMIDE 40 MG TAB PO SCH (09:20)
[2023-11-14] MEDS: SPIRONOLACTONE 25 MG TAB PO SCH (09:20)
[2023-11-14] MEDS: NYSTATIN TOPICAL POWDER 15GM TOP SCH ×2 (09:24→21:48)
[2023-11-14] MEDS: IRON SUCROSE COMPLEX 100 ML IV SCH (11:28)
[2023-11-14 13:00] VITALS: BP_SYST 101; BP_SYST 93; BP_DIAS 55; BP_DIAS 56; PULSE 78; RESP 16; TEMP 98.7; O2SAT 100
[2023-11-14 17:00] VITALS: BP 80/46; PULSE 61; RESP 16; TEMP 98.6; O2SAT 100
[2023-11-14] MEDS ORDERED: MIDODRINE HCL 10 MG TAB PO ONE (18:30)
[2023-11-14 20:00] VITALS: BP 111/87; PULSE 74; RESP 17; TEMP 97.9
[2023-11-14 22:00] VITALS: BP 111/87; PULSE 74; RESP 17; TEMP 97.9; O2SAT 97
[2023-11-15 05:00] VITALS: BP 76/46; PULSE 75; RESP 18; TEMP 97.8; O2SAT 98
[2023-11-15 05:27] VITALS: BP 93/46
[2023-11-15] MEDS: MIDODRINE HCL 10 MG TAB PO SCH ×3 (06:17→17:07)
[2023-11-15 07:01] LABS: Basophils # (auto) 0 10 ^3/uL (0-0.2); Basophils % (auto) 0.6 % (0.0-2.0); Eosinophils # (auto) 0.1 10 ^3/uL (0-0.8); Eosinophils % (auto) 1.5 % (0.0-7.0); Hematocrit 26.9 % (36.0-46.0); Hemoglobin 8.7 g/dL (12.2-16.2); Lymphocytes % (auto) 18.2 % (10.0-50.0); Mean Corpuscular Hemoglobin 31.4 pg (28.0-32.0); Mean Corpuscular Hgb Conc. 32.5 g/dL (32.0-36.0); Mean Corpuscular Volume 96.6 fL (80.0-100.0); Monocytes # (auto) 0.6 10 ^3/uL (0-1.3); Monocytes % (auto) 11.5 % (0.0-12.0); Neutrophils # (auto) 3.8 10 ^3/uL (1.6-8.6); Neutrophils % (auto) 68.2 % (37.0-80.0); Nucleated Red Blood Cells % 0.3 %; Red Blood Cells 2.78 10^6/uL (4.0-5.20); Red Cell Distribution Width 22.1 % (11.8-14.3); White Blood Cell 5.5 10^3/uL (4.4-10.8)
[2023-11-15 07:07] LABS: Chloride 99 mmol/L (98-107); Potassium 4.3 mmol/L (3.5-5.1); Sodium 132 mmol/L (136-145)
[2023-11-15 07:08] LABS: Anion Gap 3 (5-15); Carbon Dioxide 30 mmol/L (20-30)
[2023-11-15 07:13] LABS: BUN/Creatinine Ratio 24.3 (10.0-20.0); Blood Urea Nitrogen 9 mg/dL (9-23); Glucose 83 mg/dL (74-106)
[2023-11-15 09:00] VITALS: BP 119/59; PULSE 74; RESP 18; TEMP 97.9; O2SAT 99
[2023-11-15] MEDS: SPIRONOLACTONE 25 MG TAB PO SCH (09:39)
[2023-11-15] MEDS: FLUCONAZOLE 200MG/100ML 100 ML IV SCH (09:39)
[2023-11-15] MEDS: NYSTATIN TOPICAL POWDER 15GM TOP SCH ×2 (09:40→22:00)
[2023-11-15] MEDS: FUROSEMIDE 40 MG TAB PO SCH (09:40)
[2023-11-15] MEDS: PANTOPRAZOLE 40 MG TAB PO SCH (09:40)
[2023-11-15] MEDS: CALCIUM W/VIT D (600MG/400IU) TAB PO SCH (09:40)
[2023-11-15] MEDS ORDERED: ACETAMINOPHEN 325 MG TAB PO PRN (10:30)
[2023-11-15] MEDS ORDERED: cefTRIAXone 1GM/50ML D5W 50 ML IV ONE (10:30)
[2023-11-15] MEDS ORDERED: metroNIDAZOLE 500MG/100ML 100 ML IV ONE (10:30)
[2023-11-15] MEDS ORDERED: ALBUMIN 25% 100 ML IV ONE (10:30)
[2023-11-15] MEDS: HYDROcodone-ACET 5/325MG TAB PO PRN ×3 (11:39→22:00)
[2023-11-15 12:19] LABS: Alanine Aminotransferase 68 U/L (7-40); Albumin 1.7 g/dL (3.2-4.8); Alkaline Phosphatase 119 U/L (46-116); Anion Gap 6 (5-15); Aspartate Aminotransferase 189 U/L (13-40); BUN/Creatinine Ratio 17.1 (10.0-20.0); Bilirubin, Total 0.6 mg/dL (0.2-1.0); Blood Urea Nitrogen 7 mg/dL (9-23); Calcium 7.9 mg/dL (8.5-10.1); Carbon Dioxide 25 mmol/L (20-30); Chloride 98 mmol/L (98-107); Glucose 118 mg/dL (74-106); Potassium 4.4 mmol/L (3.5-5.1); Sodium 129 mmol/L (136-145); Total Protein 5.4 g/dL (5.7-8.2)
[2023-11-15 13:00] VITALS: BP_SYST 104; BP_SYST 150; BP_DIAS 52; BP_DIAS 74; PULSE 109; PULSE 75; RESP 20; TEMP 98; TEMP 98.4; O2SAT 93; O2SAT 97
[2023-11-15] MEDS ORDERED: metroNIDAZOLE 500MG/100ML 100 ML IV SCH (14:00)
[2023-11-15] MEDS: IRON SUCROSE COMPLEX 100 ML IV SCH (14:20)
[2023-11-15] MEDS: MAGNESIUM SULFATE 1GM/100ML 100 ML IV SCH ×2 (18:24→20:09)
[2023-11-15 20:00] VITALS: PULSE 104; RESP 18
[2023-11-15] MEDS: metroNIDAZOLE 500MG/100ML 100 ML IV SCH ×2 (20:27→21:56)
[2023-11-15 22:00] VITALS: BP 88/45; PULSE 61; RESP 15; TEMP 98.6; O2SAT 98
[2023-11-15] MEDS: PANTOPRAZOLE 40 MG/10 ML VIAL INJ IV SCH (22:00)
[2023-11-16 05:00] VITALS: BP 73/42; PULSE 73; RESP 15; TEMP 98.6; O2SAT 98
[2023-11-16 05:01] LABS: Mean Corpuscular Hgb Conc. 32.9 g/dL (32.0-36.0)
[2023-11-16 05:05] LABS: Hematocrit 23.8 % (36.0-46.0); Hemoglobin 7.8 g/dL (12.2-16.2); Mean Corpuscular Hemoglobin 32.3 pg (28.0-32.0); Mean Corpuscular Volume 98.3 fL (80.0-100.0); Red Blood Cells 2.42 10^6/uL (4.0-5.20); White Blood Cell 5.8 10^3/uL (4.4-10.8)
[2023-11-16 05:08] LABS: INR 1.42 (0.9-1.15); Partial Thromboplastin Time 44.5 SEC (24.5-34.5); Prothrombin Time 14.6 sec (9.3-11.8)
[2023-11-16 05:15] LABS: Red Cell Distribution Width 22.9 % (11.8-14.3)
[2023-11-16 05:16] LABS: Basophils % (manual) 0 (0.0-2.0); Blast Cells 0; Metamyelocytes % 0; Myelocytes % 0; Promyelocytes % 0; Reactive Lymphocytes 0
[2023-11-16 05:17] LABS: Alanine Aminotransferase 58 U/L (7-40); Albumin 1.7 g/dL (3.2-4.8); Alkaline Phosphatase 107 U/L (46-116); Anion Gap 3 (5-15); Aspartate Aminotransferase 154 U/L (13-40); BUN/Creatinine Ratio 23.3 (10.0-20.0); Bilirubin, Total 0.6 mg/dL (0.2-1.0); Blood Urea Nitrogen 10 mg/dL (9-23); Calcium 7.4 mg/dL (8.7-10.4); Carbon Dioxide 29 mmol/L (20-30); Chloride 99 mmol/L (98-107); Glucose 86 mg/dL (74-106); Lipase 22 U/L (12-53); Magnesium 1.7 mg/dL (1.6-2.6); Potassium 4.3 mmol/L (3.5-5.1); Sodium 131 mmol/L (136-145); Total Protein 5.1 g/dL (5.7-8.2)
[2023-11-16] MEDS: MIDODRINE HCL 10 MG TAB PO SCH ×3 (06:38→17:58)
[2023-11-16] MEDS: metroNIDAZOLE 500MG/100ML 100 ML IV SCH ×3 (06:39→21:46)
[2023-11-16 07:52] LABS: Band Neutrophils % (manual) 2; Eosinophils % (manual) 3 (0-7); Lymphocytes % (manual) 13 (10.0-50.0); Monocytes % (manual) 13 (0-12)
[2023-11-16 07:53] LABS: Anisocytosis Moderate; Platelet Estimate Decreased
[2023-11-16 08:35] VITALS: BP 87/51; PULSE 76; RESP 20; TEMP 97.8; O2SAT 99
[2023-11-16] MEDS: SPIRONOLACTONE 25 MG TAB PO SCH (10:00)
[2023-11-16] MEDS: FUROSEMIDE 40 MG TAB PO SCH (10:00)
[2023-11-16] MEDS: CALCIUM W/VIT D (600MG/400IU) TAB PO SCH (10:42)
[2023-11-16] MEDS: HYDROcodone-ACET 5/325MG TAB PO PRN ×3 (10:42→21:50)
[2023-11-16] MEDS: cefTRIAXone 1GM/50ML D5W 50 ML IV SCH (10:43)
[2023-11-16] MEDS: PANTOPRAZOLE 40 MG/10 ML VIAL INJ IV SCH ×2 (10:43→21:46)
[2023-11-16 12:30] VITALS: BP 82/52; PULSE 78; RESP 20; TEMP 98; O2SAT 97
[2023-11-16] MEDS: IRON SUCROSE COMPLEX 100 ML IV SCH (14:28)
[2023-11-16] MEDS: NYSTATIN TOPICAL POWDER 15GM TOP SCH ×2 (14:33→21:47)
[2023-11-16 16:25] VITALS: BP 80/50; PULSE 75; RESP 20; TEMP 98.5; O2SAT 98
[2023-11-16 18:10] LABS: Urine Epithelial Cast None Seen /hpf (<5)
[2023-11-16] MEDS: ALBUMIN 25% 100 ML IV SCH ×2 (18:19→20:19)
[2023-11-16 18:39] LABS: Urine Bacteria MOD /hpf (None Seen); Urine Blood TRACE /uL (Negative); Urine Clarity HAZY (Clear); Urine Color Brown (Yellow); Urine Hyaline Cast MANY /lpf (0 - 2); Urine Mucus FEW (None Seen); Urine Protein, UAD 1+ (Negative); Urine WBC 367 /hpf (0 - 5)
[2023-11-17 05:00] VITALS: BP 77/43; PULSE 77; RESP 14; TEMP 98.4; O2SAT 94
[2023-11-17 05:47] LABS: Basophils # (auto) 0 10 ^3/uL (0-0.2); Eosinophils # (auto) 0.1 10 ^3/uL (0-0.8); Lymphocytes # (auto) 0.7 10 ^3/uL (0.4-5.4); Mean Corpuscular Hgb Conc. 32.1 g/dL (32.0-36.0); Monocytes # (auto) 0.6 10 ^3/uL (0-1.3); White Blood Cell 4.1 10^3/uL (4.4-10.8)
[2023-11-17 05:49] LABS: Basophils % (auto) 0.8 % (0.0-2.0); Eosinophils % (auto) 3.1 % (0.0-7.0); Hematocrit 22.8 % (36.0-46.0); Hemoglobin 7.3 g/dL (12.2-16.2); Lymphocytes % (auto) 18.3 % (10.0-50.0); Mean Corpuscular Hemoglobin 31.4 pg (28.0-32.0); Mean Corpuscular Volume 97.8 fL (80.0-100.0); Monocytes % (auto) 14.2 % (0.0-12.0); Neutrophils # (auto) 2.6 10 ^3/uL (1.6-8.6); Neutrophils % (auto) 63.6 % (37.0-80.0); Nucleated Red Blood Cells % 0.4 %; Red Blood Cells 2.33 10^6/uL (4.0-5.20); Red Cell Distribution Width 23.8 % (11.8-14.3)
[2023-11-17] MEDS: MIDODRINE HCL 10 MG TAB PO SCH ×3 (06:05→17:06)
[2023-11-17] MEDS: metroNIDAZOLE 500MG/100ML 100 ML IV SCH (06:05)
[2023-11-17] MEDS: HYDROcodone-ACET 5/325MG TAB PO PRN ×4 (06:10→21:52)
[2023-11-17 06:12] LABS: Alanine Aminotransferase 44 U/L (7-40); Albumin 2.3 g/dL (3.2-4.8); Alkaline Phosphatase 85 U/L (46-116); Anion Gap 4 (5-15); Aspartate Aminotransferase 115 U/L (13-40); BUN/Creatinine Ratio 29.4 (10.0-20.0); Bilirubin, Total 0.9 mg/dL (0.2-1.0); Blood Urea Nitrogen 10 mg/dL (9-23); Calcium 7.8 mg/dL (8.7-10.4); Carbon Dioxide 29 mmol/L (20-30); Chloride 101 mmol/L (98-107); Glucose 77 mg/dL (74-106); Magnesium 1.6 mg/dL (1.6-2.6); Sodium 134 mmol/L (136-145)
[2023-11-17 08:00] VITALS: PULSE 88; RESP 18
[2023-11-17 09:00] VITALS: BP 111/45; PULSE 78; RESP 20; TEMP 98; O2SAT 93
[2023-11-17] MEDS ORDERED: MAGNESIUM OXIDE 400 MG TAB PO ONE (09:15)
[2023-11-17] MEDS: cefTRIAXone 1GM/50ML D5W 50 ML IV SCH (10:43)
[2023-11-17] MEDS: CALCIUM W/VIT D (600MG/400IU) TAB PO SCH (10:43)
[2023-11-17] MEDS: PANTOPRAZOLE 40 MG/10 ML VIAL INJ IV SCH ×2 (10:44→21:07)
[2023-11-17] MEDS: SPIRONOLACTONE 25 MG TAB PO SCH (10:44)
[2023-11-17] MEDS: FUROSEMIDE 40 MG TAB PO SCH (10:44)
[2023-11-17] MEDS: NYSTATIN TOPICAL POWDER 15GM TOP SCH ×3 (10:50→21:45)
[2023-11-17] MEDS ORDERED: SODIUM FERR GLUC 62.5MG/5ML 125 MG in SODIUM CHL 0.9% 100 ML IV SCH (12:00)
[2023-11-17 13:00] VITALS: BP 113/52; PULSE 75; RESP 20; TEMP 98.2; O2SAT 91
[2023-11-17 17:00] VITALS: BP 106/50; PULSE 66; RESP 17; TEMP 98.3; O2SAT 91
[2023-11-17 21:20] VITALS: BP 99/51; PULSE 63; O2SAT 98
[2023-11-18 05:50] VITALS: BP 90/54; PULSE 65
[2023-11-18] MEDS: MIDODRINE HCL 10 MG TAB PO SCH ×3 (05:55→17:52)
[2023-11-18] MEDS: HYDROcodone-ACET 5/325MG TAB PO PRN ×4 (05:55→22:32)
[2023-11-18 07:56] LABS: Alanine Aminotransferase 46 U/L (7-40); Albumin 2.3 g/dL (3.2-4.8); Alkaline Phosphatase 101 U/L (46-116); Anion Gap 6 (5-15); Aspartate Aminotransferase 125 U/L (13-40); BUN/Creatinine Ratio 22.5 (10.0-20.0); Blood Urea Nitrogen 9 mg/dL (9-23); Carbon Dioxide 27 mmol/L (20-30); Chloride 100 mmol/L (98-107); Glucose 80 mg/dL (74-106); Magnesium 1.6 mg/dL (1.6-2.6); Potassium 4.2 mmol/L (3.5-5.1); Sodium 133 mmol/L (136-145)
[2023-11-18 07:57] LABS: Bilirubin, Total 0.9 mg/dL (0.2-1.0); Total Protein 5.4 g/dL (5.7-8.2)
[2023-11-18 08:00] VITALS: PULSE 60; RESP 20
[2023-11-18 08:02] LABS: Hematocrit 25.4 % (36.0-46.0); Hemoglobin 8.3 g/dL (12.2-16.2); Mean Corpuscular Hemoglobin 32.2 pg (28.0-32.0); Mean Corpuscular Hgb Conc. 32.8 g/dL (32.0-36.0); Mean Corpuscular Volume 98.1 fL (80.0-100.0); Red Blood Cells 2.59 10^6/uL (4.0-5.20); White Blood Cell 5.4 10^3/uL (4.4-10.8)
[2023-11-18 08:17] LABS: Red Cell Distribution Width 24.2 % (11.8-14.3)
[2023-11-18 08:18] LABS: Band Neutrophils % (manual) 0; Basophils % (manual) 0 (0.0-2.0); Blast Cells 0; Metamyelocytes % 0; Myelocytes % 0; Promyelocytes % 0; Reactive Lymphocytes 0
[2023-11-18 09:00] VITALS: BP 82/47; PULSE 60; RESP 20; TEMP 98.1; O2SAT 98
[2023-11-18] MEDS: FUROSEMIDE 40 MG TAB PO SCH (10:31)
[2023-11-18] MEDS: SPIRONOLACTONE 25 MG TAB PO SCH (10:31)
[2023-11-18] MEDS: PANTOPRAZOLE 40 MG/10 ML VIAL INJ IV SCH ×2 (10:32→21:11)
[2023-11-18] MEDS: CALCIUM W/VIT D (600MG/400IU) TAB PO SCH (10:32)
[2023-11-18] MEDS: NYSTATIN TOPICAL POWDER 15GM TOP SCH ×2 (10:38→21:12)
[2023-11-18 12:48] LABS: Eosinophils % (manual) 1 (0-7); Lymphocytes % (manual) 24 (10.0-50.0); Monocytes % (manual) 10 (0-12); Platelet Estimate Adequate
[2023-11-18 13:00] VITALS: BP 88/47; PULSE 66; RESP 18; TEMP 98.2; O2SAT 100
[2023-11-18 17:00] VITALS: BP 96/54; PULSE 70; RESP 16; TEMP 98.2; O2SAT 99
[2023-11-18 22:00] VITALS: BP 101/67; PULSE 64; RESP 18; TEMP 98.1; O2SAT 99
[2023-11-19] MEDS: HYDROcodone-ACET 5/325MG TAB PO PRN ×4 (03:37→21:37)
[2023-11-19 05:00] VITALS: BP 105/69; PULSE 73; RESP 18; TEMP 97.9; O2SAT 90
[2023-11-19 05:34] LABS: Alanine Aminotransferase 45 U/L (7-40); Alkaline Phosphatase 107 U/L (46-116); Anion Gap 5 (5-15); BUN/Creatinine Ratio 21.2 (10.0-20.0); Blood Urea Nitrogen 11 mg/dL (9-23); Calcium 8.2 mg/dL (8.7-10.4); Carbon Dioxide 27 mmol/L (20-30); Chloride 102 mmol/L (98-107); Glucose 103 mg/dL (74-106); Potassium 4.5 mmol/L (3.5-5.1); Sodium 134 mmol/L (136-145)
[2023-11-19 05:35] LABS: Albumin 2.2 g/dL (3.2-4.8); Aspartate Aminotransferase 114 U/L (13-40); Bilirubin, Total 0.7 mg/dL (0.2-1.0); Total Protein 5.3 g/dL (5.7-8.2)
[2023-11-19 05:58] LABS: Basophils # (auto) 0 10 ^3/uL (0-0.2); Basophils % (auto) 0.7 % (0.0-2.0); Eosinophils # (auto) 0.2 10 ^3/uL (0-0.8); Eosinophils % (auto) 3.3 % (0.0-7.0); Hematocrit 24.9 % (36.0-46.0); Lymphocytes # (auto) 1.2 10 ^3/uL (0.4-5.4); Lymphocytes % (auto) 22.6 % (10.0-50.0); Mean Corpuscular Hemoglobin 31.7 pg (28.0-32.0); Mean Corpuscular Hgb Conc. 32.3 g/dL (32.0-36.0); Mean Corpuscular Volume 97.9 fL (80.0-100.0); Monocytes # (auto) 0.8 10 ^3/uL (0-1.3); Monocytes % (auto) 14.2 % (0.0-12.0); Neutrophils # (auto) 3.2 10 ^3/uL (1.6-8.6); Neutrophils % (auto) 59.2 % (37.0-80.0); Nucleated Red Blood Cells % 0.2 %; Red Blood Cells 2.54 10^6/uL (4.0-5.20); Red Cell Distribution Width 24.1 % (11.8-14.3); White Blood Cell 5.4 10^3/uL (4.4-10.8)
[2023-11-19] MEDS: MIDODRINE HCL 10 MG TAB PO SCH ×3 (06:11→17:30)
[2023-11-19 08:05] VITALS: BP 136/54; PULSE 64; RESP 17; TEMP 98.2; O2SAT 96
[2023-11-19] MEDS: PANTOPRAZOLE 40 MG/10 ML VIAL INJ IV SCH ×3 (09:19→20:56)
[2023-11-19] MEDS: SPIRONOLACTONE 25 MG TAB PO SCH (09:19)
[2023-11-19] MEDS: FUROSEMIDE 40 MG TAB PO SCH (09:20)
[2023-11-19] MEDS: CALCIUM W/VIT D (600MG/400IU) TAB PO SCH (09:22)
[2023-11-19] MEDS: NYSTATIN TOPICAL POWDER 15GM TOP SCH ×2 (10:45→20:56)
[2023-11-19 12:05] VITALS: BP_SYST 128; BP_SYST 98; BP_DIAS 56; BP_DIAS 61; PULSE 61; PULSE 62; RESP 16; RESP 17; TEMP 97.8; TEMP 98.3; O2SAT 98
[2023-11-19 16:15] VITALS: BP 98/60; PULSE 74; RESP 16; TEMP 97.6; O2SAT 100
[2023-11-19 20:00] VITALS: PULSE 74; RESP 16
[2023-11-19 22:00] VITALS: BP 124/68; PULSE 73; RESP 16; TEMP 98.1; O2SAT 94
[2023-11-20] VITALS (7 sets, daily range): BP systolic 88–121; BP diastolic 47–62; PULSE 58–74; RESP 16–19; TEMP 97.7–98.2; O2SAT 91–93
[2023-11-20] MEDS: HYDROcodone-ACET 5/325MG TAB PO PRN ×4 (05:18→22:44)
[2023-11-20] MEDS: MIDODRINE HCL 10 MG TAB PO SCH ×3 (05:18→17:41)
[2023-11-20 06:44] LABS: Alanine Aminotransferase 47 U/L (7-40); Albumin 2.3 g/dL (3.2-4.8); Alkaline Phosphatase 127 U/L (46-116); Anion Gap 5 (5-15); Aspartate Aminotransferase 115 U/L (13-40); BUN/Creatinine Ratio 26.5 (10.0-20.0); Bilirubin, Total 0.9 mg/dL (0.2-1.0); Blood Urea Nitrogen 13 mg/dL (9-23); Calcium 8.3 mg/dL (8.7-10.4); Carbon Dioxide 27 mmol/L (20-30); Chloride 104 mmol/L (98-107); Glucose 88 mg/dL (74-106); Potassium 4.6 mmol/L (3.5-5.1); Sodium 136 mmol/L (136-145)
[2023-11-20 06:45] LABS: Total Protein 5.8 g/dL (5.7-8.2)
[2023-11-20 06:46] LABS: Hematocrit 27.1 % (36.0-46.0); Hemoglobin 8.8 g/dL (12.2-16.2); Mean Corpuscular Hgb Conc. 32.4 g/dL (32.0-36.0); Mean Corpuscular Volume 98.8 fL (80.0-100.0); Red Blood Cells 2.74 10^6/uL (4.0-5.20); White Blood Cell 6.3 10^3/uL (4.4-10.8)
[2023-11-20 06:55] LABS: Red Cell Distribution Width 24.7 % (11.8-14.3)
[2023-11-20 06:56] LABS: Basophils % (manual) 0 (0.0-2.0); Metamyelocytes % 0; Myelocytes % 0; Promyelocytes % 0; Reactive Lymphocytes 0
[2023-11-20] MEDS: CALCIUM W/VIT D (600MG/400IU) TAB PO SCH (09:20)
[2023-11-20] MEDS: SPIRONOLACTONE 25 MG TAB PO SCH (09:20)
[2023-11-20] MEDS: PANTOPRAZOLE 40 MG/10 ML VIAL INJ IV SCH ×2 (09:20→22:42)
[2023-11-20] MEDS: FUROSEMIDE 40 MG TAB PO SCH (09:21)
[2023-11-20] MEDS: NYSTATIN TOPICAL POWDER 15GM TOP SCH ×2 (10:41→23:43)
[2023-11-20] MEDS ORDERED: FURO40TA4 PO (11:40)
[2023-11-20] MEDS ORDERED: MID10T PO (11:40)
[2023-11-20] MEDS ORDERED: SPIR25TA PO (11:40)
[2023-11-20 12:11] LABS: Platelet Estimate Adequate
[2023-11-20 12:15] LABS: Band Neutrophils % (manual) 3; Blast Cells 1; Eosinophils % (manual) 1 (0-7); Lymphocytes % (manual) 22 (10.0-50.0); Monocytes % (manual) 9 (0-12)
[2023-11-21 05:00] VITALS: BP 116/61; PULSE 84; RESP 18; TEMP 98; O2SAT 92
[2023-11-21] MEDS: MIDODRINE HCL 10 MG TAB PO SCH ×3 (06:00→18:00)
[2023-11-21 08:00] VITALS: PULSE 72; RESP 16
[2023-11-21 09:00] VITALS: BP 93/55; PULSE 72; RESP 16; TEMP 97.9; O2SAT 93
[2023-11-21] MEDS: HYDROcodone-ACET 5/325MG TAB PO PRN (09:45)
[2023-11-21] MEDS: SPIRONOLACTONE 25 MG TAB PO SCH (09:46)
[2023-11-21] MEDS: CALCIUM W/VIT D (600MG/400IU) TAB PO SCH (09:46)
[2023-11-21] MEDS: PANTOPRAZOLE 40 MG/10 ML VIAL INJ IV SCH (09:47)
[2023-11-21] MEDS: FUROSEMIDE 40 MG TAB PO SCH (09:47)
[2023-11-21 12:41] VITALS: BP 91/56; PULSE 72; RESP 16; TEMP 36.7; O2SAT 93
[2023-11-21 13:00] VITALS: BP 86/46; PULSE 75; RESP 15; TEMP 98.2; O2SAT 92
[2023-11-21 17:00] VITALS: BP 97/59; PULSE 76; RESP 16; TEMP 98.2; O2SAT 94
== END 2023-11-21 18:19 | disposition home or self-care (01) | DRG 249 ==
LOC: ER 03:18 → TELE 10:12 → ICU WEST 14:05 → DOU IN ICU 11-02 21:44 → TELE-WESTW 11-03 22:05 → WEST WING 11-11 14:29
PROVIDERS: ADMIT Internal Medicine Geriatric Medicine; ATTEND Internal Medicine Geriatric Medicine
PROC: 30233N1 Transfusion of Nonautologous Red Blood Cells into Peripheral Vein, Percutaneous Approach (ICD-10-PCS; 2023-10-25)
PROC: 30233K1 Transfusion of Nonautologous Frozen Plasma into Peripheral Vein, Percutaneous Approach (ICD-10-PCS; 2023-10-25)
PROC: 0DB68ZX Excision of Stomach, Via Natural or Artificial Opening Endoscopic, Diagnostic (ICD-10-PCS; 2023-10-27)
PROC: 0DB98ZX Excision of Duodenum, Via Natural or Artificial Opening Endoscopic, Diagnostic (ICD-10-PCS; principal; 2023-10-27 12:45)
PROC: 0DBN8ZX Excision of Sigmoid Colon, Via Natural or Artificial Opening Endoscopic, Diagnostic (ICD-10-PCS; 2023-10-28)
PROC: 0TJB8ZZ Inspection of Bladder, Via Natural or Artificial Opening Endoscopic (ICD-10-PCS; 2023-11-06)
PROC: 0T9B80Z Drainage of Bladder with Drainage Device, Via Natural or Artificial Opening Endoscopic (ICD-10-PCS; 2023-11-06)
PROC: 0W9B3ZZ Drainage of Left Pleural Cavity, Percutaneous Approach (ICD-10-PCS; 2023-11-09)
PROC: 0W9G3ZZ Drainage of Peritoneal Cavity, Percutaneous Approach (ICD-10-PCS; 2023-11-09)
PROC: 0W9G3ZZ Drainage of Peritoneal Cavity, Percutaneous Approach (ICD-10-PCS; 2023-11-13)
DX: K52.9 Noninfective gastroenteritis and colitis, unspecified (principal); R57.1 Hypovolemic shock; E43 Unspecified severe protein-calorie malnutrition; K26.4 Chronic or unspecified duodenal ulcer with hemorrhage; K25.4 Chronic or unspecified gastric ulcer with hemorrhage; E87.21 Acute metabolic acidosis; R18.8 Other ascites; J90 Pleural effusion, not elsewhere classified; K29.71 Gastritis, unspecified, with bleeding; K57.31 Diverticulosis of large intestine without perforation or abscess with bleeding; D62 Acute posthemorrhagic anemia; E83.51 Hypocalcemia; I95.9 Hypotension, unspecified; K74.60 Unspecified cirrhosis of liver; K29.81 Duodenitis with bleeding; E44.1 Mild protein-calorie malnutrition; N30.00 Acute cystitis without hematuria; E86.0 Dehydration; E87.6 Hypokalemia; F10.20 Alcohol dependence, uncomplicated; F17.210 Nicotine dependence, cigarettes, uncomplicated; J44.89 Other specified chronic obstructive pulmonary disease; R33.9 Retention of urine, unspecified; M62.89 Other specified disorders of muscle; K44.9 Diaphragmatic hernia without obstruction or gangrene; J43.2 Centrilobular emphysema; B95.8 Unspecified staphylococcus as the cause of diseases classified elsewhere; E83.42 Hypomagnesemia; E11.9 Type 2 diabetes mellitus without complications; K76.0 Fatty (change of) liver, not elsewhere classified; K80.20 Calculus of gallbladder without cholecystitis without obstruction; K64.8 Other hemorrhoids; K63.5 Polyp of colon; E87.70 Fluid overload, unspecified; Z68.25 Body mass index [BMI] 25.0-25.9, adult; Z88.5 Allergy status to narcotic agent
CPT/HCPCS: 36415; 36430; 36569; 43239; 45380; 70450; 71045; 71260; 72125; 74021; 74176; 74177; 76604; 76705; 76942; 78226; 78278; 80048; 80053; 80074; 80307; 80320; 81001; 82105; 82140; 82607; 82962; 83036; 83605; 83615; 83690; 83735; 83880; 83986; 84100; 84132; 85007; 85014; 85018; 85025; 85027; 85048; 85246; 85610; 85730; 86850; 86900; 86901; 86920; 87040; 87045; 87070; 87081; 87086; 87205; 87426; 87427; 87493; 89051; 93005; 93306; 94640; 97110; 97116; 97163; 97530; A9560; C9113; G0378; J1450; J1756; J2001; J2250; J2405; J2543; J2704; J3430; J3480; J3490; P9047